=== PATIENT | male | born 1950 | race Caucasian/White ===

== ENCOUNTER 2018-10-24 08:41 | Day surgery (SDC) | payer MEDICARE ==
[2018-10-22 09:34] VITALS: BMI 58.6
[~2018-10-24 08:41] MED LIST: LACTATED RINGERS 1,000 ML IV SCH; LIDOCAINE 1% 20 ML VIAL (10MG/ML) FOR IV START INTRADERMA PRN
[2018-10-24 09:07] VITALS: RESP 16; TEMP 98.3
[2018-10-24 09:13] LABS: Glucose,Whole Blood 115 mg/dL (75-99)
[2018-10-24] MEDS ORDERED: PROPOFOL 10 MG/ML 20 ML VIAL IV ONE (10:05)
[2018-10-24] MEDS ORDERED: MIDAZOLAM 2 MG/2 ML VIAL ONE (10:05)
[2018-10-24] MEDS ORDERED: fentaNYL (PF) 50 MCG/ML 2 ML AMP ONE (10:05)
--- NOTE | 2018-10-24 10:19 | P.GSHP ---
History of Present Illness H&P Date: 10/24/18 Chief Complaint: GI bleed This is a 60-year-old transgender male who presents today for colonoscopy. Patient had issues with GI bleed. Patient states that she may have some hemorrhoids. Past Medical History Past Medical History: Asthma, Cancer, COPD, Diabetes Mellitus, Hypertension, Myocardial Infarction (LA), Osteoarthritis (OA), Thyroid Disorder Additional Past Medical History / Comment(s): CHRONIC BRONCHITIS, LEFT KIDNEY CANCER Last Myocardial Infarction Date:: 2006 History of Any Multi-Drug Resistant Organisms: None Reported Past Surgical History: Heart Catheterization, Hysterectomy, Tonsillectomy, Tubal Ligation Additional Past Surgical History / Comment(s): BILATERAL SALPINGECTOMY AND OOPHERECTOMY , LEFT KIDNEY REMOVED, GENDER CHANGE SURGERY, -BREAST REMOVED , RIGHT ELBOW SURGERY, LEFT KNEE SURGERY Past Anesthesia/Blood Transfusion Reactions: No Reported Reaction Smoking Status: Former smoker - Past Family History Son(s) Family Medical History: Cancer Additional Family Medical History / Comment(s): THROAT CANCER, Brother(s) Family Medical History: Cancer Additional Family Medical History / Comment(s): LUNG CANCER Father Family Medical History: Cancer Additional Family Medical History / Comment(s): LUNG CANCER Sister(s) Family Medical History: Cancer Additional Family Medical History / Comment(s): KIDNEY CANCER, PANCREATIC CANCER Medications and Allergies Home Medications Medication Instructions Recorded Confirmed Type Albuterol Sulfate [Proventil Hfa] 1 - 2 puff INHALATION Q6HR PRN 10/22/18 10/24/18 History Aspirin EC [Ecotrin Low Dose] 81 mg PO DAILY 10/22/18 10/22/18 History Citalopram Hydrobromide [CeleXA] 40 mg PO DAILY 10/22/18 10/24/18 History Enalapril [Vasotec] 20 mg PO BID 10/22/18 10/22/18 History Fluticasone/Salmeterol [Advair 1 inhalation PO BID 10/22/18 10/24/18 History 250-50 Diskus] Hydrochlorothiazide [Hydrodiuril] 12.5 mg PO DAILY 10/22/18 10/24/18 History Levothyroxine Sodium [Synthroid] 88 mcg PO MOTUWETHFRSA 10/22/18 10/22/18 History Metoprolol Tartrate [Lopressor] 50 mg PO BID 10/22/18 10/22/18 History Pantoprazole [Protonix] 40 mg PO DAILY PRN 10/22/18 10/24/18 History Tiotropium [place] [Spiriva] 1 cap INHALATION DAILY 10/22/18 10/24/18 History amLODIPine [Norvasc] 2.5 mg PO DAILY 10/22/18 10/22/18 History metFORMIN HCL [Glucophage] 500 mg PO BID 10/22/18 10/24/18 History Allergies Allergy/AdvReac Type Severity Reaction Status Date / Time cefaclor [From Ceclor] Allergy Rash/Hives, Verified 10/22/18 08:52 SHORTNESS OF BREATH Cephalosporins Allergy Rash/Hives Verified 10/22/18 08:52 etodolac Allergy VISION Verified 10/22/18 08:54 PROBLEMS meloxicam [From Mobic] Allergy Unknown Verified 10/22/18 08:54 Surgical - Exam Vital Signs Temp Pulse Resp BP Pulse Ox 98.3 F 63 16 173/79 96 10/24/18 09:04 10/24/18 09:04 10/24/18 09:04 10/24/18 09:04 10/24/18 09:04 - General well developed, well nourished, no distress - Eyes PERRL - ENT normal pinna - Neck no masses - Respiratory normal expansion - Cardiovascular Rhythm: regular - Abdomen Abdomen: soft, non tender Results - Labs Abnormal Lab Results - Last 24 Hours (Table) 10/24/18 Range/Units 09:09 POC Glucose (mg/dL) 115 H (75-99) mg/dL Assessment and Plan Assessment: GI bleed. We'll perform colonoscopy.
--- NOTE | 2018-10-24 10:45 | P.OP ---
Date of Procedure: 10/24/18 Preoperative Diagnosis: GI bleed Postoperative Diagnosis: Antral gastritis Rectal biopsy pathology pending Hemorrhoids Procedure(s) Performed: EGD Colonoscopy Anesthesia: MAC Surgeon: Oni Terrell Pathology: other (Antrum, rectum) Condition: stable Disposition: PACU Description of Procedure: The patient's placed on the endoscopy table in the lateral position. He received IV sedation. The gastroscope placed oropharynx and passed in the esophagus and into the stomach. Scope was then placed through the pylorus. The first and second portion of the duodenum appeared normal. Scope was then brought back the antrum this. Minimally inflamed a biopsies performed. The scope was then retroflexed and the remainder of the stomach appeared normal. There is no significant hiatal hernia. The GE junction was at 40 cm. The distal esophagus appeared normal. The proximal esophagus appeared normal. The scope was withdrawn for patient. Next digital rectal exam was performed which revealed no abnormalities. Flexible colonoscope was then placed patient anus and passed throughout the entire colon. Ileocecal valve visualized. The cecum, ascending and transverse colon appeared normal. The descending and sigmoid colon appeared normal. The scope was brought back the rectum and there was evidence of inflammation. A rectal biopsy performed. Scope was then withdrawn from the patient.
[2018-10-24 11:09] VITALS: BP 134/79; PULSE 58
[2018-10-24] MEDS ORDERED: IV FLUID CONTINUATION 1,000 ML IV ONE (11:10)
== END 2018-10-24 11:17 | disposition home or self-care (01) ==
LOC: ORWHC2ENDO 08:41
PROVIDERS: ATTEND Surgery
DX: K29.50 Unspecified chronic gastritis without bleeding (principal); K52.9 Noninfective gastroenteritis and colitis, unspecified; E07.9 Disorder of thyroid, unspecified; E11.9 Type 2 diabetes mellitus without complications; I10 Essential (primary) hypertension; I25.2 Old myocardial infarction; J44.9 Chronic obstructive pulmonary disease, unspecified; M19.90 Unspecified osteoarthritis, unspecified site; Z79.82 Long term (current) use of aspirin; Z85.528 Personal history of other malignant neoplasm of kidney; Z87.891 Personal history of nicotine dependence; Z88.1 Allergy status to other antibiotic agents; Z87.890 Personal history of sex reassignment; Z88.4 Allergy status to anesthetic agent; Z88.8 Allergy status to other drugs, medicaments and biological substances; Z79.899 Other long term (current) drug therapy
CPT/HCPCS: 88305; 45380; 43239; J2250; J3010; J2704

== ENCOUNTER → 2019-03-14 | Outpatient (CLI) | payer MEDICARE ==
--- NOTE | 2019-03-14 15:55 | US ---
EXAMINATION TYPE: US mass soft tissue chest/back DATE OF EXAM: 03/14/2019 COMPARISON: NONE CLINICAL HISTORY: R59.1 LYMPHADENOPATHY. Right lateral chest area of pain. TECHNIQUE/FINDINGS: Targeted grayscale ultrasound was performed of the area of concern in the patient 's right lateral chest. Scanned area of pain right lateral chest from armpit down. No solid or cystic mass. No suspicious son ographic finding. No subcutaneous edema. IMPRESSION: No sonographic correlate to the patient's pain.
== END | disposition home or self-care (01) ==
LOC: RADUSWWP 15:24 → EDSEX 15:40
PROVIDERS: ATTEND Surgery
DX: R59.1 Generalized enlarged lymph nodes (principal)

== ENCOUNTER → 2019-12-03 | Outpatient (CLI) | payer OTHER ==
--- NOTE | 2019-12-03 17:10 | CT ---
EXAMINATION TYPE: CT ChestAbdPelvis wo con DATE OF EXAM: 12/03/2019 COMPARISON: 08/14/2013 HISTORY: Malignant carcinoid tumor of kidney, LT kidney removed CT DLP: 1136mGycm Unenhanced CT of the Chest, Abdomen and Pelvis Unenhanced CT of the chest ,abdomen and pelvis is performed. The lack of intravenous contrast limits evaluation of the solid and hollow viscera. Oral contrast: Yes CT Chest: LUNGS: Mild emphysematous changes. The lungs are clear and free of infiltrate or atelectasis. No pul monary nodule or mass is detected. No pleural effusion or CT evidence of interstitial lung disease. MEDIASTINUM: Thoracic aorta is of normal caliber. The heart is not enlarged. No evidence for media stinal mass or adenopathy. HILAR STRUCTURES: No evidence for mass. No hilar adenopathy is appreciated. OTHER: No significant abnormality. CONTRAST CT ABDOMEN AND PELVIS: LIVER/GB: No calcified gallstones. No space occupying hepatic lesion. Biliary tree is of normal ca liber. PANCREAS: No inflammation. No distinct mass. SPLEEN: No splenic enlargement. No lesion seen. ADRENALS: Stable left adrenal nodule. No thickening. KIDNEYS/BLADDER: Left-sided nephrectomy. No evidence for recurrent mass. No hydronephrosis. No neph rolithiasis. No distinct renal mass. BOWEL: Normal appendix. Normal bowel caliber. No inflammation. Moderate fecal stasis. GENITAL ORGANS: No gross abnormality. LYMPH NODES: No greater than 1cm abdominal or pelvic lymph nodes are appreciated. AORTA: No significant abnormality. OSSEOUS STRUCTURES: No significant abnormality is seen. OTHER: No significant additional abnormality is seen. IMPRESSION: 1. Interval left-sided nephrectomy without evidence for recurrent or metastatic disease. No metastati c disease seen. Stable left adrenal nodule.
== END | disposition home or self-care (01) ==
LOC: RADCTMAIN 14:54
DX: C7A.093 Malignant carcinoid tumor of the kidney (principal); E27.8 Other specified disorders of adrenal gland; Z90.5 Acquired absence of kidney; Z88.1 Allergy status to other antibiotic agents; Z88.6 Allergy status to analgesic agent
CPT/HCPCS: 71250; 74176

== ENCOUNTER → 2020-03-23 | Outpatient (CLI) | payer MEDICARE | END | disposition home or self-care (01) | LOC: LABWHC1 14:36 | PROVIDERS: ATTEND Internal Medicine Critical Care Medicine | DX: R05 Cough (principal); R06.02 Shortness of breath | CPT/HCPCS: U0003; C9803 ==

== ENCOUNTER → 2020-03-25 | Outpatient (CLI) | payer OTHER | END | disposition home or self-care (01) | LOC: RADMRIMAIN 12:41 | DX: Z53.9 Procedure and treatment not carried out, unspecified reason (principal) ==

== ENCOUNTER → 2020-04-24 | Outpatient (CLI) | payer OTHER ==
--- NOTE | 2020-04-27 10:14 | MR ---
EXAMINATION TYPE: MR cspine/lspine wo con DATE OF EXAM: 04/24/2020 COMPARISON: CT abdomen and pelvis December 03, 2019. HISTORY: Neck and low back pain for 10 years. TECHNIQUE: Multiplanar, multisequence imaging of the cervical and lumbar spine are performed without IV contrast. FINDINGS: Cervical spine: FINDINGS: Exam is suboptimal as there is significant motion artifact degradation. Sagittal images of the cervical spine show the craniocervical junction to appear within normal limits. The cervical and upper thoracic spinal cord is normal in course, caliber, and signal. Vertebral alignment is satisfa ctory on sagittal images. There is jnea-yn-flmkumwe disc space narrowing with moderate to severe ante rior spurring at C5-C6 and C6-C7 levels. The bone marrow signal intensity is within normal limits. Axial images at C2-C3 level show small broad-based left paracentral disc protrusion mildly effacing t he anterior thecal sac, patent bilateral neural foramina. Axial images at C3-C4 level show uncovertebral facet degenerative changes and broad-based right parac entral/foraminal spur disc complex effacing the anterolateral thecal sac and causing asymmetric moder ate to severe right-sided neural foraminal narrowing, there is mild to moderate left-sided neural for aminal narrowing noted. Axial images at C4-C5 level show uncovertebral facet degenerative changes with tiny central disc prot rusion, there is mild effacement of the anterior thecal sac, patent bilateral neural foramina. Axial images at C5-C6 levels with broad-based posterior disc protrusion effacing the anterior thecal sac up to ventral surface of spinal cord and causing moderate to advanced left greater than right maxwell ateral neural foraminal narrowing. Axial images at C6-C7 levels with broad-based posterior disc protrusion effacing the anterior thecal sac and causing mild left-sided neural foraminal narrowing. Axial images at C7-T1 level are within normal limits. IMPRESSION: Multilevel degenerative changes in the cervical spine greatest at C5-C6 and to a slightly lesser extent at C3-C4 level as detailed above. Lumbar spine: Sagittal images of the lumbar spine show vertebral body heights to remain satisfactory. Slight levoco nvex scoliosis centered at L3 level redemonstrated. Multilevel disc desiccation is present. Redemonst ration moderate disc space narrowing L3-L4 level with heterogeneous bone uptake to endplate changes a nd moderate anterior spurring . Mild disc space narrowing with vacuum disc phenomenon L5-S1 level. Mi ld to moderate disc space narrowing L2-L3 level. Additional mild multilevel disc space narrowing. The conus medullaris is normal in position and signal ending mid L1 level. Additional mild/moderate mult ilevel anterior spurring redemonstrated. Axial images show T12-L1 level to appear within normal limits. Axial images at L1-L2 level show mild to moderate broad disc bulge effacing the anterior thecal sac, patent bilateral neural foramina. Axial images at L2-L3 level shows moderate broad-based disc bulge effacing the anterior thecal sac wi th mild facet degenerative changes bilaterally. There is mild right greater than left bilateral anter ior inferior neural foraminal narrowing. Axial images at L3-L4 level shows moderate facet degenerative changes and ligamentum flavum hypertrop hy effacing posterolateral thecal sac. There is moderate broad disc bulge without significant anterio r spinal canal effacement. There is mild to moderate right greater than left bilateral anterior infer ior neural foraminal narrowing, there is encroachment on the inferior right L3 margin sagittal image 12. Axial images at the L4-L5 level show moderate to advanced facet degenerative changes and ligament fla vum hypertrophy. There is mild to moderate broad-based posterior disc protrusion. There is mild effac ement of the anterior thecal sac. There is wsoe-th-fxeayghz right greater than left bilateral neural foraminal narrowing. Axial images at L5-S1 levels with moderate facet degenerative changes bilaterally. There is mild-to-m oderate broad disc bulge. Spinal canal is preserved. There is mild right-sided anterior inferior neur al foraminal narrowing. Left kidney redemonstrated nonvisualized. Paraspinal muscle bulk is maintained. IMPRESSION: Multilevel degenerative changes in the lumbar spine as detailed above. If outside MRI becomes available for comparison an addendum may be issued.
== END | disposition home or self-care (01) ==
LOC: RADMRIMAIN 14:34
DX: M47.812 Spondylosis without myelopathy or radiculopathy, cervical region (principal); M47.816 Spondylosis without myelopathy or radiculopathy, lumbar region
CPT/HCPCS: 72141; 72148

== ENCOUNTER → 2020-08-31 | Outpatient (CLI) | payer OTHER, MEDICARE ==
--- NOTE | 2020-09-01 09:52 | XR ---
EXAMINATION TYPE: XR cervical spine limited DATE OF EXAM: 08/31/2020 TECHNIQUE: AP lateral and odontoid view of the cervical spine were obtained HISTORY: M99.03, M54.41, M99.01 COMPARISON: None FINDINGS: C7-T1 is well visualized. There is no loss of vertebral body height. Minimal anterolisthesis of C2 on C3, C3 on C4, and minimal retrolisthesis of C4 on C5. Minimal anterolisthesis of C5 on C6. Narrowing of the intervertebral disc spaces is most prominent at C5-6, and C6-7 with prominent anterior osteop hytes. Degenerative changes of the facets. Prevertebral soft tissues are within normal limits. The de ns is intact. Atlantoaxial and atlantooccipital articulations are intact. Visualized lung apices are clear. After financial aid counselor vascular palpitations of the carotid arteries bilaterally. IMPRESSION: 1. Multilevel degenerative changes of the cervical spine. No evidence of acute compression fracture.
--- NOTE | 2020-09-01 10:56 | XR ---
EXAMINATION TYPE: XR lumbar spine 2 or 3V DATE OF EXAM: 08/31/2020 CLINICAL HISTORY: Right lower back pain. History of sciatica degenerative disease TECHNIQUE: Frontal, lateral, and oblique images of the lumbar spine are obtained. COMPARISON: CT abdomen and pelvis 12/03/2019 FINDINGS: There is mild levocurvature of the lumbar spine. 5 nonrib-bearing lumbar-type vertebral bod ies. Bony demineralization. Sacroiliac joints are intact. Visualized portions. Severe atherosclerotic calcification of the abdominal aorta. There is maintenance of the normal lumbar lordosis. Minimal re trolisthesis of and L2 on L3. Narrowing of the intervertebral disc spaces at L2-3, L3-4, L4-5 and L5- S1. Multiple anterior osteophytes. Degenerative changes of the facets. IMPRESSION: 1. Multilevel degenerative changes lumbar spine as described above. 2. Severe atherosclerotic calcification abdominal aorta appears nonaneurysmal.
== END | disposition home or self-care (01) ==
LOC: RADXRMAIN 17:20
PROVIDERS: ATTEND Chiropractor
DX: M51.16 Intervertebral disc disorders with radiculopathy, lumbar region (principal); M43.16 Spondylolisthesis, lumbar region; M47.26 Other spondylosis with radiculopathy, lumbar region; M25.78 Osteophyte, vertebrae; I70.0 Atherosclerosis of aorta; M47.22 Other spondylosis with radiculopathy, cervical region
CPT/HCPCS: 72040; 72100

== ENCOUNTER → 2021-02-23 | Outpatient (CLI) | payer OTHER ==
--- NOTE | 2021-02-23 13:48 | BD ---
EXAMINATION TYPE: Axial Bone Density DATE OF EXAM: 02/23/2021 COMPARISON: DEXA bone scan report 2007 CLINICAL HISTORY: Postmenopausal female Height: 5 FT 3 1/4 IN Weight: 172 FRAX RISK QUESTIONS: Alcohol (3 or more units per day): NO Family History (Parent hip fracture): NO Glucocorticoids (More than 3mos): YES (Ex: prednisone, prednisolone, methylprednisolone, dexamethasone, and hydrocortisone). History of Fracture in Adulthood: NO Secondary Osteoporosis: 1. Type 1 Diabetes: NO 2. Hyperthyroidism: NO 3. Menopause before 45: YES 4. Malnutrition: NO 5. Chronic liver disease: NO Rheumatoid Arthritis: NO Current Tobacco Use: NO RISK FACTORS HISTORY OF: Surgery to Spine/Hip(right/left)/Wrist (right/left): NO Family History of Osteoporosis: YES Active: YES Diet low in dairy products/other sources of calcium: NO Postmenopausal woman: YES Take estrogen and/or progesterone medications: TOOK TESTOSTERONE FOR EIGHT YEARS [age] Lost more than 2 inches in height since high school: NO Frequent falls: NO Poor Health: GOOD Hyperparathyroidism: NO Adrenal Insufficiency: NO MEDICATIONS: Thyroid Medications: YES Which medication: LEVOTHYROXINE How Long: APPROX 15 YEARS Additional Medications: LEVOTHYROXINE, INHALERS, WIXEA, ALBUTEROL,BABY ASPIRIN, HYDROCHLOROTHIAZIDE, AMLODIPINE, METOPROLOL, SIMVASTATIN, CITALOPRAM, GLIPIZIDE, PANTOPRAZOLE, ALPRAZOLAM, CYCLOBENZAPRINE Additional History: COPD, EXAM MEASUREMENTS: Bone mineral densitometry was performed using the [employer]. Bone mineral density as measured about the Lumbar spine is: ----- L1-L4(G/cm2): 1.280 T Score Values are as follows: ----- L2: 0.5 ----- L3: 1.1 ----- L4: 2.3 ----- L1-L4: 0.8 Bone mineral density has: INCREASED 6.8% since study of: 2007 Bone mineral density about the R hip (g/cm2): 0.931 Bone mineral density about the L hip (g/cm2): 0.956 T Score values are as follows: -----R Neck: -0.8 -----L Neck: -0.6 -----R Total: -0.4 -----L Total: -0.5 Bone mineral density has: DECREASED -5.6% since study of: 2007 IMPRESSION: Normal (Values between +1 and -1 indicate normal bone mass). Consider repeating this study in 5 year s or sooner if there is some new clinical indication. NOTE: T-SCORE=SD OF THE YOUNG ADULT MEAN.
== END | disposition home or self-care (01) ==
LOC: RADBDWWP 12:21
PROVIDERS: ATTEND Family Medicine
DX: Z78.0 Asymptomatic menopausal state (principal); Z79.84 Long term (current) use of oral hypoglycemic drugs; Z79.899 Other long term (current) drug therapy
CPT/HCPCS: 77080

== ENCOUNTER → 2021-04-02 | Outpatient (CLI) | payer MEDICARE | END | disposition home or self-care (01) | LOC: LABWHC1 10:58 | PROVIDERS: ATTEND Family Medicine | DX: J44.1 Chronic obstructive pulmonary disease with (acute) exacerbation (principal) | CPT/HCPCS: U0003; C9803 ==

== ENCOUNTER → 2021-06-30 | Outpatient (CLI) | payer OTHER ==
--- NOTE | 2021-06-30 09:02 | CT ---
EXAMINATION TYPE: CT ChestAbdPelvis wo con DATE OF EXAM: 06/30/2021 COMPARISON: CT dated 12/03/2019 HISTORY: Malignant neoplasm of Lt kidney CT DLP: 1235 mGycm. Automated Exposure Control for Dose Reduction was Utilized. TECHNIQUE: CT scan of the thorax, abdomen and pelvis is performed without IV contrast. FINDINGS: LUNGS: Background of moderate to severe COPD changes. Newly seen 6 mm nodule at the posterolateral as pect of the left lower lobe (image #35, series 4) with a newly seen 4 mm elongated nodule at the medi al aspect of the middle lobe (image #40, series 4). No other definite lung nodule identified. Patent trachea and main bronchi. No pleural effusion. MEDIASTINUM: No pathologically enlarged lymph nodes in the chest. No gross cardiomegaly. Coronary and arterial atherosclerotic calcifications. No pericardial effusion. OTHER: Degenerative changes of the thoracic spine. No aggressive bone lesion. LIVER/GB: Stable suspected hemangioma in the right hepatic lobe adjacent to the gallbladder fossa pablo suring 19 mm with stable 5 mm hypodensity at the anterior aspect of the left lower lobe, possibly rep resenting a hepatic cyst. No other definite hepatic focal lesion by this nonenhanced CT scan. Unremar kable gallbladder. PANCREAS: No significant abnormality is seen. SPLEEN: No significant abnormality is seen. ADRENALS: Stable left adrenal nodule measuring 18 mm likely representing an adrenal adenoma. Multiple right renal. KIDNEYS: Unremarkable left nephrectomy bed. Right renal hypodensities, likely representing renal cyst s, suboptimally assessed by this nonenhanced CT scan. Unremarkable right kidney otherwise. BOWEL: Unremarkable nondistended stomach, duodenum and small bowel. Fecal loading of the colon sugges tive of constipation. GENITAL ORGANS: Suspected perineal prolapse, please correlate clinically. Previous hysterectomy. No g ross adnexal mass. The urinary bladder is not distended. LYMPH NODES: No greater than 1cm abdominal or pelvic lymph nodes are appreciated. OSSEOUS STRUCTURES: Degenerative changes of the lumbar spine most evident at L5-S1 level with marked degenerative changes of the right hip joint. No aggressive bone lesion. OTHER: Scattered arterial atherosclerotic calcifications. No sizable ascites. IMPRESSION: 1. Newly seen 2 lung nodules as detailed above, possibly inflammatory/infectious nodules however meta static nodules can't be excluded. Recommend follow-up CT scan in 2-3 months for reassessment. 2. No evidence of local tumor recurrence or metastatic disease seen in the abdomen or the pelvis. Inc idental findings as described above.
== END | disposition home or self-care (01) ==
LOC: RADCTMAIN 07:52
DX: C64.2 Malignant neoplasm of left kidney, except renal pelvis (principal); R91.8 Other nonspecific abnormal finding of lung field
CPT/HCPCS: 71250; 74176

== ENCOUNTER → 2022-05-05 | Outpatient (CLI) | payer OTHER ==
--- NOTE | 2022-05-05 12:58 | CT ---
EXAMINATION TYPE: CT chest wo con DATE OF EXAM: 05/05/2022 COMPARISON: 06/30/2021 HISTORY: nodules CT DLP: 302.[address] of the chest was performed with lung and mediastinal window settings submitted. The la ck of contrast limits evaluation of the vascular, mediastinal and parenchymal structures including th e upper abdomen. LUNGS: Moderate COPD changes redemonstrated. 3.3 mm pulmonary nodule right upper lobe opacity major f issure image 27 of 73. This is unchanged. 2 or 3 new pleural-based nodules right upper lobe laterally measuring 3 mm image 38 and 4 mm image 40. Couple of subpleural adjacent nodules noted measuring up to 3 mm. 4 mm left lower lobe pulmonary nodule image 37 is stable. No evidence for infiltrate or volu me loss. No pleural effusion seen. MEDIASTINUM/DOMINIQUE: Thoracic aorta is of normal caliber with limited evaluation given lack of contrast . The heart is not enlarged. No evidence for mediastinal mass. No lymph nodes greater than 1cm. UPPER ABDOMEN: No significant abnormality is seen. OTHER: No significant other abnormality. IMPRESSION: 1. Scattered sub-5 mm pulmonary nodules are redemonstrated a couple of which are new. Follow-up stud y in one year is advised.
== END | disposition home or self-care (01) ==
LOC: RADCTMAIN 12:18
DX: R91.8 Other nonspecific abnormal finding of lung field (principal); J44.9 Chronic obstructive pulmonary disease, unspecified
CPT/HCPCS: 71250

== ENCOUNTER 2022-06-22 23:49 | Emergency (ER) | payer MEDICARE, OTHER ==
--- NOTE | 2022-06-22 23:56 | ED ---
Chest Pain HPI - General Source: patient, family, RN notes reviewed Mode of arrival: wheelchair Limitations: no limitations - History of Present Illness MD Complaint: chest pain, other (Shortness of breath, fatigue) Anginal Symptoms: nausea <Eugenie Inman - Last Filed: 06/22/22 23:56> <Samuel Del Rosario - Last Filed: 06/23/22 03:16> - General Chief Complaint: Chest Pain Stated Complaint: Chest Pain, Shortness of Breath, Numbness in left Time Seen by Provider: 06/22/22 23:52 - History of Present Illness Initial Comments: This is a 71-year-old female who presents to the emergency department for fatigue, shortness of breath, and chest pain. States that she has felt fatigued for most of the day, and around 8:30 PM this evening developed shortness of breath. She has minor chest pain, but states that the shortness of breath is much more severe. Also reports pain to the back of her head and numbness to the left arm. Additionally, states that she feels sick to her stomach. States that even just sitting in the wheelchair she feels short of breath. (Eugenie Inman) - Related Data Home Medications Medication Instructions Recorded Confirmed Albuterol Sulfate [Proventil Hfa] 1 - 2 puff INHALATION Q6HR PRN 10/22/18 10/24/18 Aspirin EC [Ecotrin Low Dose] 81 mg PO DAILY 10/22/18 10/22/18 Citalopram Hydrobromide [CeleXA] 40 mg PO DAILY 10/22/18 10/24/18 Enalapril [Vasotec] 20 mg PO BID 10/22/18 10/22/18 Fluticasone Propion/Salmeterol 1 inhalation PO BID 10/22/18 10/24/18 [Advair 250-50 Diskus] Levothyroxine Sodium [Synthroid] 88 mcg PO MOTUWETHFRSA 10/22/18 10/22/18 Metoprolol Tartrate [Lopressor] 50 mg PO BID 10/22/18 10/22/18 Pantoprazole [Protonix] 40 mg PO DAILY PRN 10/22/18 10/24/18 Tiotropium [place] [Spiriva] 1 cap INHALATION DAILY 10/22/18 10/24/18 amLODIPine [Norvasc] 2.5 mg PO DAILY 10/22/18 10/22/18 hydroCHLOROthiazide [Hydrodiuril] 12.5 mg PO DAILY 10/22/18 10/24/18 metFORMIN HCL [Glucophage] 500 mg PO BID 10/22/18 10/24/18 Allergies Allergy/AdvReac Type Severity Reaction Status Date / Time cefaclor [From Ceclor] Allergy Rash/Hives, Verified 06/22/22 23:56 SHORTNESS OF BREATH Cephalosporins Allergy Rash/Hives Verified 06/22/22 23:56 etodolac Allergy VISION Verified 06/22/22 23:56 PROBLEMS meloxicam [From Mobic] Allergy Unknown Verified 06/22/22 23:56 ibuprofen AdvReac Unknown Verified 06/23/22 01:02 Review of Systems ROS Other: All systems not noted in ROS Statement are negative. <Eugenie Inman - Last Filed: 06/22/22 23:56> ROS Other: All systems not noted in ROS Statement are negative. <Samuel Del Rosario - Last Filed: 06/23/22 03:16> ROS Statement: Those systems with pertinent positive or pertinent negative responses have been documented in the HPI. Past Medical History Past Medical History: Asthma, Cancer, COPD, Diabetes Mellitus, Hypertension, Myocardial Infarction (HI), Osteoarthritis (OA), Thyroid Disorder Additional Past Medical History / Comment(s): CHRONIC BRONCHITIS, LEFT KIDNEY CANCER Last Myocardial Infarction Date:: 2006 History of Any Multi-Drug Resistant Organisms: None Reported Past Surgical History: Heart Catheterization, Hysterectomy, Tonsillectomy, Tubal Ligation Additional Past Surgical History / Comment(s): BILATERAL SALPINGECTOMY AND OOPHERECTOMY , LEFT KIDNEY REMOVED, GENDER CHANGE SURGERY, -BREAST REMOVED , RIGHT ELBOW SURGERY, LEFT KNEE SURGERY Past Anesthesia/Blood Transfusion Reactions: No Reported Reaction Past Psychological History: Anxiety, Depression Past Alcohol Use History: None Reported Additional Past Alcohol Use History / Comment(s): STARTED SMOKING AT AGE 14 , QUIT FEB 19 1996 SMOKED 1- 1 1/2 PPD Past Drug Use History: None Reported - Past Family History Son(s) Family Medical History: Cancer Additional Family Medical History / Comment(s): THROAT CANCER, Brother(s) Family Medical History: Cancer Additional Family Medical History / Comment(s): LUNG CANCER Father Family Medical History: Cancer Additional Family Medical History / Comment(s): LUNG CANCER Sister(s) Family Medical History: Cancer Additional Family Medical History / Comment(s): KIDNEY CANCER, PANCREATIC CANCER <Eugenie Inman - Last Filed: 06/22/22 23:56> General Exam Limitations: no limitations <Eugenie Inman - Last Filed: 06/22/22 23:56> - General Exam Comments Initial Comments: Visual Physical Exam Vital signs reviewed General: Well-appearing, nontoxic, no acute distress. Head: Normocephalic, atraumatic Eyes: PERRLA, EOMI ENT: Airway patent Chest: Nonlabored breathing Skin: No visual rash, normal skin tone Neuro: Alert and oriented 3 Musculoskeletal: No gross abnormalities (Eugenie Inman) Course Vital Signs 06/22/22 06/23/22 06/23/22 23:52 02:00 02:44 Temperature 98.4 F Pulse Rate 70 62 59 L Respiratory 20 20 20 Rate Blood Pressure 184/81 185/84 168/94 O2 Sat by Pulse 97 94 L Oximetry Chest Pain MDM <Samuel Del Rosario - Last Filed: 06/23/22 03:16> - MDM Dictation was produced using [employer] dictation software. please excuse any grammatical, word or spelling errors. Chief Complaint: 71-year-old female with past medical history of asthma, COPD diabetes presents to the emergency department for shortness of breath, left upper extremity tingling and mild headache History of Present Illness: 71-year-old female presents emergency department for the chief complaint of shortness of breath. She also has secondary complaints of headache and left upper extremity tingling. States that her symptoms initially began with shortness of breath. Denies any cough or chest pain. She has history of cardiac disease. Denies any fevers. Denies any history of heart failure. Patient also complaining of left upper extremity tingling. Denies any weakness to the extremity. She states it feels like it's tingling from her left shoulder all down to her fingertips. Shortly after patient also began having a mild headache. She states that in posterior head. Rate is down to the neck. Patient's headache is insidious in onset. Not thunderclap in nature. Denies that this headache is worse addictions ever had in her life. The ROS documented in this emergency department record has been reviewed and confirmed by me. Those systems with pertinent positive or negative responses have been documented in the HPI. All other systems are other negative and/or noncontributory. PHYSICAL EXAM: General Impression: Alert and oriented x3, not in acute distress HEENT: Normocephalic atraumatic, extra-ocular movements intact, pupils equal and reactive to light bilaterally, mucous membranes moist, neck supple Cardiovascular: Heart regular rate and rhythm Chest: Able to complete full sentences, no retractions, no tachypnea Abdomen: abdomen soft, non-tender, non-distended, no organomegaly Musculoskeletal: Pulses present and equal in all extremities, no peripheral edema Motor: no focal deficits noted Neurological: CN II-XII grossly intact, no focal motor or sensory deficits noted, negative Brudzinski's, negative Lhermitte's, negative Kernig's Skin: Intact with no visualized rashes Psych: Normal affect and mood ED course: 71-year-old female presents emergency department with shortness of breath, left upper extremity tingly and headache. Vital signs upon arrival are within acceptable limits. Nursing notes and chart review was performed EKG interpreted by me: Ventricular rate 65, sinus rhythm,. We'll 239, QRS 145, QTc 450. No CT prolongation, no QTC prolongation. No old EKG for comparison. There is depressions in V2 and V5 and V6. Overall this EKG is nonspecific. Was pt. sent in by a medical professional or institution (, PA, SORTER OPERATOR, urgent care, hospital, or group home...) When possible be specific @ -No Did you speak to anyone other than the patient for history (EMS, parent, family, police, friend...)? What history was obtained from this source @ -Family members at the bedside Did you review nursing and triage notes (agree or disagree)? Why? @ -I reviewed and agree with nursing and triage notes Were old charts reviewed (outside hosp., previous admission, EMS record, old EKG, old radiological studies, urgent care reports/EKG's, group home records)? Report findings @ -No old charts were reviewed Differential Diagnosis (chest pain, altered mental status, abdominal pain women, abdominal pain men, vaginal bleeding, musculoskeletal, weakness, fever, dyspnea, syncope, headache, dizziness, GI bleed, back pain, seizure, CVA, palpatations, mental health)? @ -Differential Dyspnea: Coronary syndrome, arrhythmia, tamponade, asthma, COPD, pulmonary embolism, pneumonia, pneumothorax, pulmonary effusion, anaphylaxis, diabetic ketoacidosis, flailed chest, pulmonary contusion, diaphragmatic rupture, anemia, neuromuscular, this is not meant to be an all-inclusive list. EKG interpreted by me (3pts min.). @ -See above X-rays interpreted by me (1pt min.). @ -Nonacute CT interpreted by me (1pt min.). @ -None done U/S interpreted by me (1pt. min.). @ -None done What testing was considered but not performed or refused? (CT, X-rays, U/S, labs)? Why? @ -See above What meds were considered but not given or refused? Why? @ -See above Did you discuss the management of the patient with other professionals (professionals i.e. , PA, SORTER OPERATOR, lab, RT, psych nurse, social media project manager, guidance secretary, teacher, parachute/combatant diver officer, binder caser)? Give summary @ -no Was smoking cessation discussed for >3mins.? @ -No Was critical care preformed (if so, how long)? @ -No Were there social determinants of health that impacted care today? How? (Homelessness, low income, unemployed, alcoholism, drug addiction, transportation, low edu. Level, literacy, decrease access to med. care, residential, rehab)? @ -No Was there de-escalation of care discussed even if they declined (Discuss DNR or withdrawal of care, Hospice)? DNR status @ -No What co-morbidities impacted this encounter? (DM, HTN, Smoking, COPD, CAD, Cancer, CVA, ARF, Chemo, Hep., AIDS, mental health diagnosis, sleep apnea, morbid obesity)? @ -None Was patient admitted / discharged? Hospital course, mention meds given and route, prescriptions, significant lab abnormalities, going to OR and other pertinent info. @ -71-year-old female presents with multiple complaints including shortness of breath, headache and left upper extremity tingling. Clinical presentation con cerning for complex migraine. She does not have any high-risk features of headache. Patient does report shortness of breath however she does not appear to be dyspneic at the bedside. Laboratory evaluation obtained. CBC, coag panel, metabolic panel is unremarkable. Prematurity peptide is negative. For panel by PCR is negative. Chest x-ray is nonacute. Patient wheezing at the bedside. Computed tomography scan of the brain is unremarkable. Disposition options were discussed with patient and she is agreeable for discharge. She is reevaluated bedside at 3:15 AM reports complete resolution of her symptoms. She is concerned that perhaps maybe she became a little anxious about her symptoms. Otherwise she is encouraged to follow up with her primary care doctor. Undiagnosed new problem with uncertain prognosis? @ -No Drug Therapy requiring intensive monitoring for toxicity (Heparin, Nitro, Insulin, Cardizem)? @ -No Were any procedures done? @ -No Diagnosis/symptom? Acute, or Chronic, or Acute on Chronic? Uncomplicated (without systemic symptoms) or Complicated (systemic symptoms)? @ -1. Shortness of breath, no obvious source, no high-risk features Side effects of treatment? @ -No Exacerbation, Progression, or Severe Exacerbation? @ -No Poses a threat to life or bodily function? How? (Chest pain, [place], HI, pneumonia, PE, COPD, DKA, ARF, appy, cholecystitis, CVA, Diverticulitis, Homicidal, Suicidal, threat to staff... and all critical care pts) @ -No (Samuel Del Rosario) Disposition <Eugenie Inman - Last Filed: 06/22/22 23:56> Is patient prescribed a controlled substance at d/c from ED?: No Time of Disposition: 03:16 <Samuel Del Rosario - Last Filed: 06/23/22 03:16> Clinical Impression: Dyspnea Disposition: HOME SELF-CARE Condition: Good Instructions (If sedation given, give patient instructions): Dyspnea (ED) Referrals: [facility],Clinic [REFERRING] - 1-2 days
[2022-06-23 00:47] LABS: Basophils # (A) 0.1 k/uL (0-0.2); Basophils % (A) 1 %; Eosinophils # (A) 0.2 k/uL (0-0.7); Eosinophils % (A) 1 %; HCT 44.8 % (34.0-46.0); HGB 15.2 gm/dL (11.4-16.0); Lymphocytes # (A) 1.5 k/uL (1.0-4.8); Lymphocytes % (A) 11 %; MCH 29.4 pg (25.0-35.0); MCV 86.5 fL (80.0-100.0); Mean Platelet Volume 7.7; Monocytes # (A) 1.1 k/uL (0-1.0); Monocytes % (A) 8 %; Neutrophils # (A) 10.3 k/uL (1.3-7.7); Neutrophils % (A) 77 %; Platelet Count 282 k/uL (150-450); RBC 5.18 m/uL (3.80-5.40); RDW 13.5 % (11.5-15.5); WBC 13.3 k/uL (3.8-10.6)
[2022-06-23] MEDS ORDERED: ACETAMINOPHEN TAB 500 MG TAB PO STA (00:49)
[2022-06-23] MEDS ORDERED: ONDANSETRON 4 MG/2 ML VIAL IVP STA (00:52)
[2022-06-23 01:10] LABS: INR 0.9 (<1.2); Prothrombin Time 9.9 sec (9.0-12.0)
--- NOTE | 2022-06-23 01:24 | CT ---
EXAMINATION TYPE: CT brain wo con DATE OF EXAM: 06/23/2022 COMPARISON: None HISTORY: headache, LUE tingling CT DLP: 1110 mGycm Automated exposure control for dose reduction was used. Images of the brain obtained with no contrast. Ventricles have normal size. There is no mass effect or midline shift. No sign of intracranial hemorr shannon. Calvarium is intact. Skull base is intact. There is normal aeration of the mastoid sinuses. IMPRESSION: Negative unenhanced head CT scan.
--- NOTE | 2022-06-23 01:25 | XR ---
EXAMINATION TYPE: XR chest 2V DATE OF EXAM: 06/23/2022 COMPARISON: NONE HISTORY: Headache. TECHNIQUE: 2 views FINDINGS: Heart and mediastinum are normal. Lungs are clear. Diaphragm is normal. Bony thorax is inta ct. There is mild pulmonary hyperinflation. Thoracic aorta shows minimal atheromatous changes. Thorac ic spine is intact. There are chest leads. IMPRESSION: There is probably COPD. No acute lung disease. Normal heart
[2022-06-23 01:40] LABS: Albumin 4.1 g/dL (3.5-5.0); Calcium 9.1 mg/dL (8.4-10.2); Total Bilirubin 0.6 mg/dL (0.2-1.3); Total Protein 6.8 g/dL (6.3-8.2)
[2022-06-23 01:52] LABS: Partial Thromboplastin Time 21.9 sec (22.0-30.0)
[2022-06-23 02:05] LABS: Magnesium 2.2 mg/dL (1.6-2.3); Potassium 3.7 mmol/L (3.5-5.1)
[2022-06-23] MEDS ORDERED: SODIUM CHLORIDE 0.9% 1,000 ML IV STA (02:16)
[2022-06-23 03:17] VITALS: BP 160/78; PULSE 61; RESP 16; TEMP 98.6
== END 2022-06-23 03:18 | disposition home or self-care (01) ==
LOC: EC 23:49
DX: R06.00 Dyspnea, unspecified (principal); I10 Essential (primary) hypertension; I25.2 Old myocardial infarction; J44.9 Chronic obstructive pulmonary disease, unspecified; M19.90 Unspecified osteoarthritis, unspecified site; F41.9 Anxiety disorder, unspecified; F32.A Depression, unspecified; E11.9 Type 2 diabetes mellitus without complications; Z79.51 Long term (current) use of inhaled steroids; Z79.82 Long term (current) use of aspirin; Z79.84 Long term (current) use of oral hypoglycemic drugs; Z79.899 Other long term (current) drug therapy; Z87.891 Personal history of nicotine dependence; Z88.1 Allergy status to other antibiotic agents; Z88.8 Allergy status to other drugs, medicaments and biological substances
CPT/HCPCS: 36415; 93005; 83880; 80053; 83735; 84484; 85025; 85610; 85730; 87636; 71046; 70450; 99285; 96374; 96361; J2405

== ENCOUNTER → 2022-07-05 | Outpatient (CLI) | payer MEDICARE, OTHER ==
--- NOTE | 2022-07-06 07:24 | US ---
EXAMINATION TYPE: US abdomen limited DATE OF EXAM: 07/05/2022 COMPARISON: NONE CLINICAL HISTORY: R10.9. Pain right flank for two month after breathing treatment. TECHNIQUE: Scanning was performed over area of pain, right flank, as pointed out by patient. Superfi cial scanning and deeper scanning was performed. The area is over the right kidney, there are multipl e small cysts seen. Valsalva was utilized, no obvious hernia seen. There is no fluid collection or m ass identified. FINDINGS: There is a 1.6 x 1.3 cm cyst on the upper pole right kidney within the [id number]. IMPRESSION: 1. Right renal cyst 2. No suspicious abnormalities to account for right flank pain
== END | disposition home or self-care (01) ==
LOC: RADUSWWP 15:52
PROVIDERS: ATTEND Family Medicine
DX: N28.1 Cyst of kidney, acquired (principal)
CPT/HCPCS: 76705

== ENCOUNTER → 2022-07-20 | Outpatient (CLI) | payer MEDICARE ==
--- NOTE | 2022-07-20 15:56 | CT ---
EXAMINATION TYPE: CT abdomen pelvis wo con CT DLP: 526.8 mGycm, Automated exposure control for dose reduction was used. DATE OF EXAM: 07/20/2022 2:03 PM COMPARISON: CT abdomen pelvis most recent from 06/30/2021 CLINICAL INDICATION:Female, 71 years old with history of R10.9; abdominal discomfort TECHNIQUE: Axial CT of the abdomen and pelvis. Sagittal and coronal reformats were created on a [employer] workstation. Contrast used: None Oral contrast used: with Oral Contrast FINDINGS: LOWER CHEST: Mild to moderate centrilobular emphysema changes throughout the lungs. ABDOMEN LIVER: Hepatic hemangioma measuring up to 18 mm has increased in size slightly since 2013. GALLBLADDER AND BILE DUCTS: Unremarkable. PANCREAS: Unremarkable. SPLEEN: Unremarkable. ADRENAL GLANDS: Unremarkable. KIDNEYS AND URETERS: No evidence of hydronephrosis or renal calculus. The ureters are unremarkable. PELVIS BLADDER: Unremarkable REPRODUCTIVE: Unremarkable. ABDOMEN & PELVIS STOMACH AND BOWEL: No evidence of bowel obstruction. Large stool burden throughout the colon. PERITONEUM/RETROPERITONEUM: No evidence of pneumoperitoneum or free fluid. VASCULATURE: Mild atherosclerotic calcifications are present throughout the abdominal aorta and its b ranches. No evidence of aortic aneurysm. MUSCULOSKELETAL: No acute osseous abnormalities. Moderate disc degeneration changes are present throu ghout the thoracolumbar spine. Multilevel facet joint arthropathy changes throughout the spine. End-s tage osteoporosis changes of the right hip with [id number] articulation and subchondral cystic betancourt ge and osteophyte formation. LYMPH NODES: No gross evidence for lymphadenopathy. SOFT TISSUE/ABDOMINAL WALL: Unremarkable IMPRESSION: 1. Large stool burden throughout the colon correlate for constipation. No additional acute process w ithin the abdomen or pelvis. 2. 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
== END | disposition home or self-care (01) ==
LOC: RADCTMAIN 11:59
PROVIDERS: ATTEND Family Medicine
DX: R10.9 Unspecified abdominal pain (principal); M16.11 Unilateral primary osteoarthritis, right hip
CPT/HCPCS: 74176

== ENCOUNTER 2023-04-09 14:17 | Emergency (ER) | payer OTHER, MEDICARE ==
[2023-04-09 14:23] VITALS: TEMP 98.7
--- NOTE | 2023-04-09 14:49 | ED ---
General Adult HPI - General Chief complaint: Shortness of Breath Stated complaint: Cough, shortness of breath Time Seen by Provider: 04/09/23 14:28 Source: patient, RN notes reviewed Mode of arrival: ambulatory Limitations: no limitations - History of Present Illness Initial comments: 72-year-old female presents emergency department for evaluation of cough, congestion, headache, muscle aches 3 days. She states that headaches and fatigue started 3 days ago but noticed today that she started coughing. She denies sore throat, fever, chills. She states that other people in her household has similar symptoms. She has a history of COPD and states she has felt more short of breath today than typically. She does report that she is using her breathing treatments at home. - Related Data Home Medications Medication Instructions Recorded Confirmed Albuterol Sulfate [Proventil Hfa] 1 - 2 puff INHALATION Q6HR PRN 10/22/18 10/24/18 Aspirin EC [Ecotrin Low Dose] 81 mg PO DAILY 10/22/18 10/22/18 Citalopram Hydrobromide [CeleXA] 40 mg PO DAILY 10/22/18 10/24/18 Enalapril [Vasotec] 20 mg PO BID 10/22/18 10/22/18 Fluticasone Propion/Salmeterol 1 inhalation PO BID 10/22/18 10/24/18 [Advair 250-50 Diskus] Levothyroxine Sodium [Synthroid] 88 mcg PO MOTUWETHFRSA 10/22/18 10/22/18 Metoprolol Tartrate [Lopressor] 50 mg PO BID 10/22/18 10/22/18 Pantoprazole [Protonix] 40 mg PO DAILY PRN 10/22/18 10/24/18 Tiotropium [place] [Spiriva] 1 cap INHALATION DAILY 10/22/18 10/24/18 amLODIPine [Norvasc] 2.5 mg PO DAILY 10/22/18 10/22/18 hydroCHLOROthiazide [Hydrodiuril] 12.5 mg PO DAILY 10/22/18 10/24/18 metFORMIN HCL [Glucophage] 500 mg PO BID 10/22/18 10/24/18 Previous Rx's Medication Instructions Recorded predniSONE 50 mg PO DAILY #5 tab 04/09/23 Allergies Allergy/AdvReac Type Severity Reaction Status Date / Time cefaclor [From Ceclor] Allergy Rash/Hives, Verified 06/22/22 23:56 SHORTNESS OF BREATH Cephalosporins Allergy Rash/Hives Verified 06/22/22 23:56 etodolac Allergy VISION Verified 06/22/22 23:56 PROBLEMS meloxicam [From Mobic] Allergy Unknown Verified 06/22/22 23:56 ibuprofen AdvReac Unknown Verified 06/23/22 01:02 Review of Systems ROS Statement: Those systems with pertinent positive or pertinent negative responses have been documented in the HPI. ROS Other: All systems not noted in ROS Statement are negative. Past Medical History Past Medical History: Asthma, Cancer, COPD, Diabetes Mellitus, Hypertension, Myocardial Infarction (OK), Osteoarthritis (OA), Thyroid Disorder Additional Past Medical History / Comment(s): CHRONIC BRONCHITIS, LEFT KIDNEY CANCER Last Myocardial Infarction Date:: 2006 History of Any Multi-Drug Resistant Organisms: None Reported Past Surgical History: Heart Catheterization, Hysterectomy, Tonsillectomy, Tubal Ligation Additional Past Surgical History / Comment(s): BILATERAL SALPINGECTOMY AND OOPHERECTOMY , LEFT KIDNEY REMOVED, GENDER CHANGE SURGERY, -BREAST REMOVED , RIGHT ELBOW SURGERY, LEFT KNEE SURGERY Past Anesthesia/Blood Transfusion Reactions: No Reported Reaction Past Psychological History: Anxiety, Depression Past Alcohol Use History: None Reported Past Drug Use History: None Reported - Past Family History Son(s) Family Medical History: Cancer Additional Family Medical History / Comment(s): THROAT CANCER, Brother(s) Family Medical History: Cancer Additional Family Medical History / Comment(s): LUNG CANCER Father Family Medical History: Cancer Additional Family Medical History / Comment(s): LUNG CANCER Sister(s) Family Medical History: Cancer Additional Family Medical History / Comment(s): KIDNEY CANCER, PANCREATIC CANCER General Exam Limitations: no limitations General appearance: alert, in no apparent distress Head exam: Present: atraumatic, normocephalic, normal inspection Eye exam: Present: normal appearance, PERRL, EOMI. Absent: scleral icterus, conjunctival injection, periorbital swelling ENT exam: Present: normal exam, mucous membranes moist Neck exam: Present: normal inspection. Absent: tenderness, meningismus, lymphadenopathy Respiratory exam: Present: wheezes (Mild throughout). Absent: respiratory distress, rales, rhonchi, stridor, chest wall tenderness, accessory muscle use Cardiovascular Exam: Present: regular rate, normal rhythm, normal heart sounds. Absent: systolic murmur, diastolic murmur, rubs, gallop, clicks Extremities exam: Present: normal inspection, full ROM, normal capillary refill. Absent: tenderness, pedal edema, joint swelling, calf tenderness Back exam: Present: normal inspection Neurological exam: Present: alert, oriented X3 Psychiatric exam: Present: normal affect, normal mood Course Vital Signs 04/09/23 04/09/23 14:19 17:04 Temperature 98.7 F Pulse Rate 73 64 Respiratory 24 20 Rate Blood Pressure 132/75 155/73 O2 Sat by Pulse 97 96 Oximetry Medical Decision Making - Medical Decision Making Was pt. sent in by a medical professional or institution (, PA, TOOL CRIB LEAD, urgent care, hospital, or half-way...) When possible be specific @ -No Did you speak to anyone other than the patient for history (EMS, parent, family, police, friend...)? What history was obtained from this source @ -No Did you review nursing and triage notes (agree or disagree)? Why? @ -I disagree with the triage note, patient is not in any respiratory distress Were old charts reviewed (outside hosp., previous admission, EMS record, old EKG, old radiological studies, urgent care reports/EKG's, half-way records)? Report findings @ -No old charts were reviewed Differential Diagnosis (chest pain, altered mental status, abdominal pain women, abdominal pain men, vaginal bleeding, weakness, fever, dyspnea, syncope, headache, dizziness, GI bleed, back pain, seizure, CVA, palpatations, mental health, musculoskeletal)? @ -Differential Dyspnea: Coronary syndrome, arrhythmia, tamponade, asthma, COPD, pulmonary embolism, pneumonia, pneumothorax, pulmonary effusion, anaphylaxis, diabetic ketoacidosis, flailed chest, pulmonary contusion, diaphragmatic rupture, anemia, neuromuscular, this is not meant to be an all-inclusive list. EKG interpreted by me (3pts min.). @ -EKG at 1510 shows sinus rhythm first-degree AV block rate 65, UT 272, QRS 144, QTQTc 4814 23 X-rays interpreted by me (1pt min.). @ -X-ray shows no acute infiltrate, COPD changes CT interpreted by me (1pt min.). @ -None done U/S interpreted by me (1pt. min.). @ -None done What testing was considered but not performed or refused? (CT, X-rays, U/S, labs)? Why? @ -None What meds were considered but not given or refused? Why? @ -None Did you discuss the management of the patient with other professionals (professionals i.e. , PA, TOOL CRIB LEAD, lab, RT, psych nurse, social security benefits interviewer, farmer vegetable, teacher, housing management officer, manager case management)? Give summary @ -No Was smoking cessation discussed for >3mins.? @ -No Was critical care preformed (if so, how long)? @ -No Were there social determinants of health that impacted care today? How? (Homelessness, low income, unemployed, alcoholism, drug addiction, transportation, low edu. Level, literacy, decrease access to med. care, custodial, rehab)? @ -No Was there de-escalation of care discussed even if they declined (Discuss DNR or withdrawal of care, Hospice)? DNR status @ -No What co-morbidities impacted this encounter? (DM, HTN, Smoking, COPD, CAD, Cancer, CVA, ARF, Chemo, Hep., AIDS, mental health diagnosis, sleep apnea, morbid obesity)? @ -None Was patient admitted / discharged? Hospital course, mention meds given and route, prescriptions, significant lab abnormalities, going to OR and other pertinent info. @ -Discharged. Patient presented to the emergency department for evaluation of cough, congestion, worsening shortness of breath. Laboratory studies obtained. CBC shows a PVC 7.9, hemoglobin 14.2; UA shows some studies within normal limits I, CMP shows sodium 136, potassium 3.2 patient given supplemental potassium in the emergency department by mouth. Covid, influenza, RSV negative. Chest x-ray shows no acute infiltrate with COPD changes present. Patient will be started on a course of prednisone and advised to increase her nebulizer use. Patient initiated chemotherapy patient stable at discharge. Case discussed with Dr. Del Rosario Undiagnosed new problem with uncertain prognosis? @ -No Drug Therapy requiring intensive monitoring for toxicity (Heparin, Nitro, Insulin, Cardizem)? @ -No Were any procedures done? @ -No Diagnosis/symptom? @ -COPD exacerbation Acute, or Chronic, or Acute on Chronic? @ -[id number] Uncomplicated (without systemic symptoms) or Complicated (systemic symptoms)? @ -uncomplicated Side effects of treatment? @ -No Exacerbation, Progression, or Severe Exacerbation? @ -No Poses a threat to life or bodily function? How? (Chest pain, [place], OK, pneumonia, PE, COPD, DKA, ARF, appy, cholecystitis, CVA, Diverticulitis, Homicidal, Suicidal, threat to staff... and all critical care pts) @ -No - Lab Data Result diagrams: 04/09/23 15:17 04/09/23 15:17 Lab Results 04/09/23 04/09/23 04/09/23 Range/Units 15:17 15:17 15:17 WBC 7.9 (3.8-10.6) k/uL RBC 4.65 (3.80-5.40) m/uL Hgb 14.2 (11.4-16.0) gm/dL Hct 41.3 (34.0-46.0) % MCV 88.9 (80.0-100.0) fL MCH 30.6 (25.0-35.0) pg MCHC 34.4 (31.0-37.0) g/dL RDW 13.1 (11.5-15.5) % Plt Count 233 (150-450) k/uL MPV 7.9 Neutrophils % 69 % Lymphocytes % 19 % Monocytes % 8 % Eosinophils % 1 % Basophils % 1 % Neutrophils # 5.5 (1.3-7.7) k/uL Lymphocytes # 1.5 (1.0-4.8) k/uL Monocytes # 0.6 (0-1.0) k/uL Eosinophils # 0.1 (0-0.7) k/uL Basophils # 0.1 (0-0.2) k/uL PT 10.3 (10.0-12.5) sec INR 0.9 (<1.2) APTT 23.3 (22.0-30.0) sec Sodium 136 L (137-145) mmol/L Potassium 3.2 L (3.5-5.1) mmol/L Chloride 100 (98-107) mmol/L Carbon Dioxide 25 (22-30) mmol/L Anion Gap 11 mmol/L BUN 21 H (7-17) mg/dL Creatinine 1.07 H (0.52-1.04) mg/dL Est GFR (CKD-EPI)AfAm 60 (>60 ml/min/1.73 sqM) Est GFR (CKD-EPI)NonAf 52 (>60 ml/min/1.73 sqM) Glucose 94 (74-99) mg/dL Plasma Lactic Acid [place] (0.7-2.0) mmol/L Calcium 9.3 (8.4-10.2) mg/dL Total Bilirubin 0.7 (0.2-1.3) mg/dL AST 27 (14-36) U/L ALT 19 (4-34) U/L Alkaline Phosphatase 112 (38-126) U/L Total Protein 6.6 (6.3-8.2) g/dL Albumin 4.1 (3.5-5.0) g/dL Influenza Type A (PCR) (Not Detectd) Influenza Type B (PCR) (Not Detectd) RSV (PCR) (Not Detectd) SARS-CoV-2 (PCR) (Not Detectd) 04/09/23 04/09/23 Range/Units 15:17 15:17 WBC (3.8-10.6) k/uL RBC (3.80-5.40) m/uL Hgb (11.4-16.0) gm/dL Hct (34.0-46.0) % MCV (80.0-100.0) fL MCH (25.0-35.0) pg MCHC (31.0-37.0) g/dL RDW (11.5-15.5) % Plt Count (150-450) k/uL MPV Neutrophils % % Lymphocytes % % Monocytes % % Eosinophils % % Basophils % % Neutrophils # (1.3-7.7) k/uL Lymphocytes # (1.0-4.8) k/uL Monocytes # (0-1.0) k/uL Eosinophils # (0-0.7) k/uL Basophils # (0-0.2) k/uL PT (10.0-12.5) sec INR (<1.2) APTT (22.0-30.0) sec Sodium (137-145) mmol/L Potassium (3.5-5.1) mmol/L Chloride (98-107) mmol/L Carbon Dioxide (22-30) mmol/L Anion Gap mmol/L BUN (7-17) mg/dL Creatinine (0.52-1.04) mg/dL Est GFR (CKD-EPI)AfAm (>60 ml/min/1.73 sqM) Est GFR (CKD-EPI)NonAf (>60 ml/min/1.73 sqM) Glucose (74-99) mg/dL Plasma Lactic Acid [place] 0.9 (0.7-2.0) mmol/L Calcium (8.4-10.2) mg/dL Total Bilirubin (0.2-1.3) mg/dL AST (14-36) U/L ALT (4-34) U/L Alkaline Phosphatase (38-126) U/L Total Protein (6.3-8.2) g/dL Albumin (3.5-5.0) g/dL Influenza Type A (PCR) Not Detected (Not Detectd) Influenza Type B (PCR) Not Detected (Not Detectd) RSV (PCR) Not Detected (Not Detectd) SARS-CoV-2 (PCR) Not Detected (Not Detectd) Disposition Clinical Impression: COPD exacerbation, URI (upper respiratory infection) Disposition: HOME SELF-CARE Condition: Stable Instructions (If sedation given, give patient instructions): Upper Respiratory Infection (ED), COPD (Chronic Obstructive Pulmonary Disease) (ED) Additional Instructions: Follow up with your primary care provider. Return to the emergency department for new or worsening symptoms. Prescriptions: predniSONE 50 mg PO DAILY #5 tab Is patient prescribed a controlled substance at d/c from ED?: No Referrals: [facility],Clinic [Primary Care Provider] - 1-2 days
[2023-04-09 15:32] LABS: Basophils # (A) 0.1 k/uL (0-0.2); Basophils % (A) 1 %; Eosinophils # (A) 0.1 k/uL (0-0.7); Eosinophils % (A) 1 %; HCT 41.3 % (34.0-46.0); HGB 14.2 gm/dL (11.4-16.0); Lymphocytes # (A) 1.5 k/uL (1.0-4.8); Lymphocytes % (A) 19 %; MCH 30.6 pg (25.0-35.0); MCHC 34.4 g/dL (31.0-37.0); MCV 88.9 fL (80.0-100.0); Mean Platelet Volume 7.9; Monocytes # (A) 0.6 k/uL (0-1.0); Monocytes % (A) 8 %; Neutrophils # (A) 5.5 k/uL (1.3-7.7); Neutrophils % (A) 69 %; Platelet Count 233 k/uL (150-450); RBC 4.65 m/uL (3.80-5.40); RDW 13.1 % (11.5-15.5); WBC 7.9 k/uL (3.8-10.6)
[2023-04-09 15:44] LABS: INR 0.9 (<1.2); Partial Thromboplastin Time 23.3 sec (22.0-30.0); Prothrombin Time 10.3 sec (10.0-12.5)
[2023-04-09 15:53] LABS: ALT 19 U/L (4-34); AST 27 U/L (14-36); African American GFR (CKD) 60 (>60 ml/min/1.73 sqM); Albumin 4.1 g/dL (3.5-5.0); Alkaline Phosphatase 112 U/L (38-126); Anion Gap 11 mmol/L; Blood Urea Nitrogen 21 mg/dL (7-17); Calcium 9.3 mg/dL (8.4-10.2); Carbon Dioxide 25 mmol/L (22-30); Chloride 100 mmol/L (98-107); Glucose 94 mg/dL (74-99); Non-African American GFR(CKD) 52 (>60 ml/min/1.73 sqM); Potassium 3.2 mmol/L (3.5-5.1); Sodium 136 mmol/L (137-145); Total Bilirubin 0.7 mg/dL (0.2-1.3); Total Protein 6.6 g/dL (6.3-8.2)
[2023-04-09] MEDS ORDERED: POTASSIUM CHLORIDE ER 20 MEQ TAB.ER PO STA (15:56)
--- NOTE | 2023-04-09 16:07 | XR ---
EXAMINATION TYPE: XR chest 2V DATE OF EXAM: 04/09/2023 3:45 PM CLINICAL INDICATION:Female, 72 years old with history of difficulty breathing; [facility] COMPARISON: Chest radiographs from 06/23/2022. TECHNIQUE: XR chest 2V Frontal and lateral views of the chest. FINDINGS: Lungs/Pleura: There is flattening of the diaphragm with increased lucency of the lungs. No evidence o f pneumothorax, pleural effusion or focal consolidation. Pulmonary vascularity: Unremarkable. Heart/mediastinum: Cardiomediastinal silhouette is unremarkable. Musculoskeletal: No acute osseous pathology. IMPRESSION: 1. No acute cardiopulmonary disease process. 2. COPD changes.
[2023-04-09] MEDS ORDERED: methylPREDNISolone SOD SUCCI 125 MG/2 ML VIAL IV STA (16:37)
[2023-04-09 19:27] VITALS: BP 155/73; PULSE 64; RESP 20
== END 2023-04-09 17:04 | disposition home or self-care (01) ==
LOC: EC 14:17
DX: J44.1 Chronic obstructive pulmonary disease with (acute) exacerbation (principal); J06.9 Acute upper respiratory infection, unspecified; I44.0 Atrioventricular block, first degree; E11.9 Type 2 diabetes mellitus without complications; I10 Essential (primary) hypertension; I25.2 Old myocardial infarction; F32.A Depression, unspecified; F41.9 Anxiety disorder, unspecified; E07.9 Disorder of thyroid, unspecified; Z20.822 Contact with and (suspected) exposure to COVID-19; Z79.890 Hormone replacement therapy; Z79.51 Long term (current) use of inhaled steroids; Z79.82 Long term (current) use of aspirin; Z79.84 Long term (current) use of oral hypoglycemic drugs; Z79.899 Other long term (current) drug therapy; Z88.1 Allergy status to other antibiotic agents; Z88.5 Allergy status to narcotic agent; Z88.6 Allergy status to analgesic agent; Z88.8 Allergy status to other drugs, medicaments and biological substances
CPT/HCPCS: 36415; 93005; 80053; 83605; 85025; 85610; 85730; 87636; 71046; 99285; 96374; J2930

== ENCOUNTER → 2023-05-16 | Outpatient (CLI) | payer OTHER ==
--- NOTE | 2023-05-16 13:08 | CT ---
EXAMINATION TYPE: CT chest wo con CT DLP: 232.30 mGycm, Automated exposure control for dose reduction was used. DATE OF EXAM: 05/16/2023 12:48 PM COMPARISON: 05/05/2022 CLINICAL INDICATION:Female, 72 years old with history of R91.1 SOLITARY PULMONARY NODULE; PHH, Solita ry pulmonary nodule TECHNIQUE: Multiple axial images were obtained through the chest. Sagittal and coronal reformats were created for review. Contrast used: mL of (None if empty) Oral contrast used: (None if empty) FINDINGS: LUNGS/ PLEURA: Centrilobular emphysema Enlarging pulmonary nodules. Changes are seen throughout the lungs. No focal consolidation, pneumotho rax or pleural effusion. Right intrafissural lymph node is unchanged measuring 5 mm series 3 image 27 . Left lower lobe 5 mm pulmonary nodule series 3 image 37 is stable. AIRWAY: Patent and unremarkable. HEART: Size within normal limits. Mild to moderate calcifications. MEDIASTINUM: No gross evidence of adenopathy. VASCULATURE: No aortic aneurysm. MUSCULOSKELETAL: No acute osseous abnormalities SOFT TISSUES/LYMPH NODES: The breasts are surgically absent. LOWER NECK: No significant findings. UPPER ABDOMEN: No significant findings. IMPRESSION: 1. No new or enlarging pulmonary nodules. Stable pulmonary nodules. Consider yearly low-dose lung ca ncer screening. 2. Moderate emphysema. Follow up recommendations for incidental pulmonary nodules, if there are any, are per [employer] or [employer]. [email or web address].org/[email or web address]?lang=us
== END | disposition home or self-care (01) ==
LOC: RADCTMAIN 12:20
PROVIDERS: ATTEND Family Medicine
DX: J43.2 Centrilobular emphysema (principal); R91.1 Solitary pulmonary nodule; R91.8 Other nonspecific abnormal finding of lung field
CPT/HCPCS: 71250

== ENCOUNTER → 2023-11-08 | Outpatient (CLI) | payer OTHER ==
--- NOTE | 2023-11-08 17:05 | MR ---
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 COMPARISON: 07/20/2022. TECHNIQUE: Multi planar, multi sequence imaging was performed utilizing: T1-weighted, T2-weighted, a nd turbo inversion recovery imaging of the lumbar spine. IV Contrast: cc . (None if empty) FINDINGS: Alignment: The lumbar vertebral bodies have preserved heights and alignment. Cord: The conus medullaris and the distal spinal cord appear unremarkable with regards to their signa l intensity and morphology. Bones/Discs: Multilevel disc degeneration changes with osteophyte formation, disc space narrowing, Sc hmorl's nodes, and facet joint arthropathy. Multilevel disc desiccation is present. No abnormal inve rsion recovery signal to suggest bony edema. T12-L1: No evidence of significant spinal canal stenosis or neural foraminal stenosis. L1-L2: No evidence of significant spinal canal stenosis or neural foraminal stenosis. L2-L3: Disc bulge and facet joint arthropathy without significant spinal canal stenosis and mild bila teral neural foraminal stenosis. L3-L4: No evidence of significant spinal canal stenosis. Facet joint arthropathy mild bilateral neura l foraminal stenosis. L4-L5: Disc bulge and facet joint arthropathy result in moderate to severe spinal canal and moderate to severe right and severe left neural foraminal stenosis. L5-S1: Disc bulge and facet joint arthropathy result in moderate spinal canal and moderate bilateral neural foraminal stenosis. No significant spinal canal or neural foraminal stenosis in the remainder of the visualized levels. Other findings: None. IMPRESSION: 1. Moderate to severe changes with moderate to severe L4-L5 and moderate L5-S1 bilaterally canal martine nosis. 2. Neural femoral stenosis worse at L5-S1 with moderate bilateral and L4-5 with moderate to severe r ight and severe left neural foraminal stenosis.
== END | disposition home or self-care (01) ==
LOC: RADMRIMAIN 08:57
PROVIDERS: ATTEND Family Medicine
DX: M48.061 Spinal stenosis, lumbar region without neurogenic claudication (principal)
CPT/HCPCS: 72148

== ENCOUNTER → 2023-12-04 | Outpatient (CLI) | payer OTHER ==
[2023-12-04 16:04] LABS: Basophils # (A) 0.06 X 10*3/uL (0.00-0.10); Eosinophils # (A) 0.09 X 10*3/uL (0.04-0.35); Eosinophils % (A) 1.5 %; HCT 39.6 % (39.6-50.0); Lymphocytes # (A) 1.69 X 10*3/uL (0.90-5.00); Lymphocytes % (A) 29.1 %; MCH 29.3 pg (27.0-32.0); MCHC 32.8 g/dL (32.0-37.0); MCV 89.2 FL (80.0-97.0); Mean Platelet Volume 10.4 FL (9.5-12.2); Monocytes # (A) 0.78 X 10*3/uL (0.20-1.00); Monocytes % (A) 13.4 %; NRBC Per 100 WBC 0.03 X 10*3/uL (0.00-0.01); Neutrophils # (A) 3.14 X 10*3/uL (1.80-7.70); Neutrophils % (A) 54.1 %; Platelet Count 259 X 10*3/uL (140-440); RBC 4.44 X 10*6/uL (4.40-5.60); RDW 14.4 % (11.5-14.5); WBC 5.81 X 10*3/uL (4.50-10.00)
[2023-12-04 16:44] LABS: BUN/Creat Ratio 15.25 Ratio (12.00-20.00); Blood Urea Nitrogen 18.3 mg/dL (9.0-27.0); Calcium 10.1 mg/dL (8.7-10.3); Carbon Dioxide 27.5 mmol/L (21.6-31.8); Chloride 97 mmol/L (96-109); Glucose 125 mg/dL (70-110); Potassium 4.5 mmol/L (3.5-5.5); Sodium 138 mmol/L (135-145)
[2023-12-04 17:20] LABS: INR 0.99 sec (0.93-1.11); Prothrombin Time 10.7 sec (9.9-11.9)
== END | disposition home or self-care (01) ==
LOC: LABPAT 08:33
PROVIDERS: ATTEND Orthopaedic Surgery
DX: Z01.818 Encounter for other preprocedural examination (principal); I44.0 Atrioventricular block, first degree; I51.89 Other ill-defined heart diseases; M16.11 Unilateral primary osteoarthritis, right hip; R94.31 Abnormal electrocardiogram [ECG] [EKG]
CPT/HCPCS: 80048; 85025; 85610; 93005

== ENCOUNTER → 2023-12-25 | Outpatient (CLI) | payer OTHER | END | disposition home or self-care (01) | LOC: LABWHC1 07:57 | PROVIDERS: ATTEND Orthopaedic Surgery | DX: Z01.818 Encounter for other preprocedural examination | CPT/HCPCS: 86850; 86900; 86901; 87070 ==

== ENCOUNTER 2024-01-01 05:42 | Day surgery (SDC) | payer OTHER ==
[2023-12-25 11:14] VITALS: BMI 27.3
--- NOTE | 2023-12-31 12:48 | HP ---
HISTORY AND PHYSICAL ANTICIPATED DATE OF SURGERY: Her surgery is scheduled for 01/01/2024. Henny Enriquez is a patient who is seen with symptomatic right hip osteoarthritis. We discussed options regarding treatment. She elected to proceed with direct anterior right total hip arthroplasty. Consent regarding the procedure was obtained. Pulmonary clearance provided by Dr. ANURADHA Steele. Cardiac clearance by Dr. De Leon. PAST MEDICAL HISTORY: COPD, hypothyroidism, cardiovascular disease. PAST SURGICAL HISTORY: Noncontributory. DAILY MEDICATIONS: 1. Albuterol. 2. Amlodipine. 3. Glipizide. 4. Hydrochlorothiazide. 5. Levothyroxine. 6. Metoprolol. 7. Simvastatin. ALLERGIES: None reported. SOCIAL HISTORY: She denies current tobacco use. PHYSICAL EVALUATION OF RIGHT HIP: She has limited range of motion with severe pain. Positive hip impingement sign. Straight-leg raise is negative. Her distal neurovascular exam is intact. RADIOGRAPHS: Right hip radiographs reveal severe osteoarthritic changes. IMPRESSION: 1. Right hip osteoarthritis. 2. Hypertension. 3. Hyperlipidemia. 4. Asthma/chronic obstructive pulmonary disease. PLAN: Direct anterior right total hip arthroplasty. MMODL / IJN: [id number] /
[~2024-01-01 05:42] MED LIST changes: -LACTATED RINGERS 1,000 ML IV SCH; -LIDOCAINE 1% 20 ML VIAL (10MG/ML) FOR IV START INTRADERMA PRN; +TRANEXAMIC 1,000 MG/100ML-NACL 1,000 MG in SALINE 1 100ML.BAG IVPB PRN
[2024-01-01] MEDS ORDERED: LIDOCAINE 1% (10MG/ML) FOR IV START INTRADERMA PRN (06:06)
[2024-01-01 06:50] LABS: Glucose,Whole Blood 119 mg/dL (70-110)
[2024-01-01] MEDS: LACTATED RINGERS 1,000 ML IV SCH (06:51)
[2024-01-01] MEDS ORDERED: HYDROmorphone 0.5 MG/0.5 ML SYRINGE IVP PRN ×3 (07:00→09:06)
[2024-01-01] MEDS: ACETAMINOPHEN TAB 500 MG TAB PO PRN (07:01)
[2024-01-01] MEDS: ONDANSETRON 4 MG/2 ML VIAL IVP ONE (07:01)
[2024-01-01] MEDS: DEXAMETHASONE SOD PHOSPHATE 4 MG/ML 1 ML VIAL IVP STA (07:01)
[2024-01-01] MEDS: IV FLUID CONTINUATION 1,000 ML IV ONE (07:06)
[2024-01-01] MEDS: fentaNYL (PF) 50 MCG/ML 2 ML AMP IVP PRN (07:23)
[2024-01-01] MEDS: MIDAZOLAM 2 MG/2 ML VIAL IV ONE (07:25)
[2024-01-01] MEDS ORDERED: TRANEXAMIC 1,000 MG/100ML-NACL PREMIX BAG ONE (07:30)
[2024-01-01] MEDS ORDERED: fentaNYL (PF) 50 MCG/ML 2 ML AMP ONE (07:30)
[2024-01-01] MEDS ORDERED: MIDAZOLAM 2 MG/2 ML VIAL ONE (07:30)
[2024-01-01] MEDS ORDERED: PROPOFOL 10 MG/ML 20 ML VIAL IV ONE (07:30)
[2024-01-01] MEDS ORDERED: ROPIVACAINE 5 MG/ML 30 ML VIAL ONE (07:30)
[2024-01-01] MEDS: LACTATED RINGERS 1,000 ML IV ONE (09:00)
[2024-01-01] MEDS ORDERED: HYDROcodone/APAP 5-325MG 1 EACH TAB PO PRN (09:06)
[2024-01-01] MEDS ORDERED: ONDANSETRON 4 MG/2 ML VIAL IVP PRN (09:06)
[2024-01-01] MEDS ORDERED: NALOXONE 0.4 MG/ML 1 ML VIAL IV PRN (09:06)
--- NOTE | 2024-01-01 09:06 | P.OP ---
Date of Procedure: 01/01/24 Preoperative Diagnosis: Right hip osteoarthritis Postoperative Diagnosis: Right hip osteoarthritis Procedure(s) Performed: Direct anterior right total hip arthroplasty Implants: 1. DePuy [place] 135 degree standard collared KA size 10 press-fit femoral stem 2. DePuy [place] 52 mm press-fit acetabular shell 3. DePuy [place] neutral polyethylene acetabular liner 36 mm ID 52 mm OD 4. Biolox delta ceramic femoral head +1.5 36 mm Anesthesia: regional (Erector spinae block), spinal Surgeon: Shai Laird Vmware Engineer #1: Devon Soria Estimated Blood Loss (ml): 45 Pathology: none sent Condition: stable Disposition: PACU Indications for Procedure: 73-year-old patient seen with symptomatic right hip osteoarthritis. After having treatment options discussed, she elected to proceed with direct anterior right total hip arthroplasty. Operative Findings: See description of procedure Description of Procedure: The patient was taken to the operative suite. Patient underwent a spinal anesthetic by the department of anesthesia. Patient was then transferred to the [place] table. Patient was given preoperative IV antibiotics and TXA. Both lower extremities were placed in standard leg spars. The hip was then prepped and draped in the normal sterile orthopedic fashion. A standard anterior incision was made beginning 3 cm lateral and 1 cm distal to the ASIS extending 10 cm. Dissection was then carried down through the subcutaneous soft tissues down to the fascia overlying the tensor fascia dutch. An incision was now made through the fascia. Careful dissection was taken down exposing the tensor fascia dutch muscle. A Cobra retractor was now placed along the medial femoral neck and a second one along the lateral femoral neck. The venous circumflex vessels were now identified, cauterized and clipped. We identified the anterior hip capsule. An incision was made through the hip capsule along the lateral border. I performed a partial anterior capsulectomy. Retractors were now placed around the femoral neck itself. A femoral neck cut was now made with a sagittal saw. It was completed with an osteotome at the lateral neck area. The femoral head was now removed without difficulty. The extremity was now rotated to 60 of external rotation. It was locked in position. Residual labrum was now debrided out. Serial reaming was performed of the acetabulum while Tejinder ANDRADE assisted holding an anterior retractor for exposure. Once we reached the appropriate size and a trial was position and fit nicely. The appropriate size was now chosen opened and made available. It was introduced into the acetabulum without difficulty. The C-arm/fluoroscopy was now brought into the operative field. We made sure we had a true AP pelvic view. We now under direct C- arm/fluoroscopy introduced into the acetabular component with appropriate version and inclination. I held the cup in appropriate position well Tejinder ANDRADE used a mallet to seat the acetabular component. I noted the component now to be well seated and stable. Acetabular cup introduce her was removed. The C-arm was pulled back. An appropriate liner was introduced and clicked into position. It was felt to be stable. At this point retractors were removed. The extremity was now placed into 140 external rotation with no traction. The leg was now dropped to the ground and adducted. Appropriate retractors were now positioned along the proximal femur. We also placed our femoral look into position. Additional capsular releasing was performed to gain access to the pro ximal femur. We now used a box osteotome. A canal finder was now utilized. Serial broaching was now performed with the assistance of Tejinder ANDRADE tapping the broaches down with a mallet while held the broach in appropriate rotation and position. This was done until we reached the appropriate size with good overall rotational stability. Appropriate calcar planing was performed. A trial head/neck was placed into position. The hip was now reduced. The C- arm/fluoroscopy was brought back into the operative field. I obtained an AP pelvis demonstrating adequate positioning of the components. The C- arm/fluoroscopy was pulled back. Retractors were repositioned and the hip was dislocated. The leg was again taken down to the ground and adducted. Appropriate retractors were repositioned as well as the femoral hook. All trial components were removed. The femoral implant was opened along with the femoral head. The femoral implant was introduced on the appropriate handle into our p re-broached area. I held the component position well Tejinder ANDRADE used a mallet to seat the femoral component. The femoral component was now noted to be well seated and stable.. The femoral head was introduced with good positioning and fixation noted. Retractors were now removed. The hip was now reduced. There appeared be good positioning of the hip confirmed on intraoperative fluoroscopy. Spot films were obtained to document this. A second gram of TXA was given. Bipolar cautery had been utilized intermittently through the procedure for hemostasis. The wound was irrigated copiously with pulse lavage mechanical irrigation. The fascia was repaired with Vicryl suture. The subcutaneous soft tissues were repaired in layers with Vicryl suture. The skin was approximated with pernio/Dermabond. Sterile dressings were applied. Patient was then awakened, transferred to a bed and taken to recovery in stable condition. Tejinder ANDRADE assisted with the complex procedure.
--- NOTE | 2024-01-01 10:59 | P.ANPRN ---
Procedure Note - Anesthesia - Nerve Block Performed Right [place] Single Time Out Performed: Yes ([id number]) Date of Procedure: 01/01/24 Procedure Start Time: :08 Procedure Stop Time: :12 Location of Patient: PreOp Indication: Acute Post-Operative Pain, Requested by Surgeon Specifically requested for management of pain by DrAntonio: Shai Laird Sedation Type: Sedate with meaningful contact maintained Preparation: Sterile Prep Position: Supine Catheter: None Needle Types: Pajunk Needle Gauge: 21 Ultrasound used to visualize needle placement: Yes Ultrasound used to observe medication spread: Yes Injectate: 0.5% Ropivacaine (see comment for volume) (30cc) Blood Aspirated: No Pain Paresthesia on Injection Noted: No Resistance on Injection: Normal Image Stored and Saved: Yes Events: Uneventful and Well Tolerated
[2024-01-01] MEDS ORDERED: MULTIVITAMINS, THERA 1 EACH TAB PO SCH (12:00)
[2024-01-01] MEDS: Pre Op ABX Message 1 EACH MISC MISCELLANE ONE (15:04)
[2024-01-01] MEDS: SODIUM CHLORIDE 0.9% 1,000 ML IV SCH (15:08)
[2024-01-01] MEDS: HYDROcodone/APAP 7.5-325MG 1 EACH TAB PO PRN (15:21)
[2024-01-01] MEDS ORDERED: IPRATROPIUM-ALBUTEROL 3 ML NEB INHALATION PRN (16:17)
[2024-01-01 16:37] LABS: Glucose,Whole Blood 223 mg/dL (70-110)
[2024-01-01] MEDS: LEVOTHYROXINE 88 MCG TAB PO SCH (16:39)
[2024-01-01] MEDS ORDERED: DEXTROSE 50% SYRINGE 50 ML IVP PRN ×2 (17:26)
--- NOTE | 2024-01-01 17:38 | P.CONS ---
History of Present Illness - Reason for Consult Consult date: 01/01/24 Medical Management Requesting physician: Shai Laird - History of Present Illness History of Presenting Illness: Patient is a very pleasant 73-year-old female with a past medical history of CAD status post stent, hypertension, hyperlipidemia, [id number] diabetes mellitus, hypothyroidism, COPD home oxygen dependent on 2 L as needed, renal cell carcinoma status post left nephrectomy, and obstructive sleep apnea CPAP dependent. She is currently admitted under orthopedic surgery team status post elective right total hip arthroplasty. Surgical procedure was completed secondary to severe right hip osteoarthritis and was completed by Dr. Laird. We were consulted for medical management throughout patient's hospitalization. Patient was seen and fully evaluated in room 474 status post completion of right total hip arthroplasty. She was eating dinner at time of assessment. Patient reports having moderate pain to right hip and is currently rating 8 out of 10 at this time. She states the pain radiates down into her thigh and right knee. She denies having any postoperative nausea or vomiting and has been ambulating with assistance to and from restroom. She denies any difficulties with urination. Patient denies any other complaints including headache, lightheadedness, dizziness, chest pain, palpitations, shortness of breath, or experiencing any numbness or focal weakness in her extremities. Review of systems: Pertinent positives and negatives as discussed in HPI, a complete review of systems was performed and all other systems are negative. Physical exam: Vital signs reviewed and stable. General: Nontoxic, no distress and appears stated age. Derm: Skin warm and dry, normal coloration for ethnicity. Head: Atraumatic, normocephalic and symmetric. Eyes: EOM's intact, no lid lag, and anicteric sclera Mouth: no lip lesions, mucus membranes moist Cardiovascular: regular rate and rhythm with normal S1S2, no murmur, positive posterior tibial pulses bilaterally, and cap refill < 2 seconds. Lungs: Respirations even, regular, and unlabored on room air. Lungs CTA bilaterally, no rhonchi, no rales, no wheezing, and no accessory muscle usage. Abdominal: soft, nontender to palpation, no guarding, no appreciable organom egaly Ext: No gross muscle atrophy, no edema, no contractures. Movement and sensation intact. Postoperative dressing in place right hip. Neuro: Speech clear, face symmetrical and CN II-XII grossly intact with no noted focal neuro deficits Psych: Alert and oriented to person, place, time, and situation. Appropriate and pleasant affect. Assessment and Plan of Care: Status post right total hip arthroplasty Management by primary admitting orthopedic surgery team including DVT prophylaxis, pain management, wound/dressing management, weightbearing, and PT/OT. Currently on DVT prophylaxis with aspirin 325 mg twice daily. [id number] diabetes mellitus type 2 with hyperglycemia Hold glipizide and place patient on glycemic protocol with NovoLog sliding scale. CAD status post stent Hypertension Hyperlipidemia Continue medication regimen with amlodipine 5 mg daily, atorvastatin 20 mg nightly, hydrochlorothiazide 25 mg daily, irbesartan 150 mg daily, and metoprolol 50 mg twice daily. COPD with home oxygen dependent on 2 L as needed, stable and at baseline not in exacerbation Obstructive sleep apnea CPAP dependent nightly Continue with supplemental oxygen as needed to maintain SpO2 equal to or greater than 90%. Continue nebulizers 4 times daily as needed for shortness of breath and/or wheezing, Singulair 10 mg daily, and Pulmicort 0.5 mg twice daily. Hypothyroidism Continue daily medication regimen with levothyroxine 88 mcg daily. Data and imaging reviewed: Reviewed postoperative report. Labs reviewed. Blood glucose elevated at 223. Vital signs reviewed. Blood pressure 138/66, heart rate 65, respiratory rate 17, temp 96.3 F axillary and SpO2 of 97% on 2 L O2. Thank you for allowing us to participate in the care of this pleasant patient. Do not hesitate to contact us with questions. Someone can be reached from the [facility] hospitalist group all hours of the day at [phone] or via perfect serve. Patient was seen independently by Nurse Practitioner. This document was prepared using [employer] dictation software. Please allow for errors in medical corps officer while rare they do occur. I reviewed the documentation as provided by the JAMIE above, who is the original author of this note. I agree with the documented assessment and plan, with the following changes: none Past Medical History Past Medical History: Asthma, Cancer, COPD, Diabetes Mellitus, Hearing Disorder / Deafness, Hyperlipidemia, Hypertension, Myocardial Infarction ([place]), Osteoarthritis ([place]), Sleep Apnea/CPAP/BIPAP, Thyroid Disorder Additional Past Medical History / Comment(s): CHRONIC BRONCHITIS, HX LEFT KIDNEY CANCER WITH NEPHRECTOMY, SOME HEARING LOSS, CPAP USE, O2 USE PRN. Last Myocardial Infarction Date:: 2006 History of Any Multi-Drug Resistant Organisms: None Reported Past Surgical History: Breast Surgery, Heart Catheterization, Hysterectomy, Orthopedic Surgery, Tonsillectomy, Tubal Ligation Additional Past Surgical History / Comment(s): BILATERAL SALPINGECTOMY AND OOPHERECTOMY, LEFT KIDNEY REMOVED 2014, GENDER CHANGE SURGERY -BREASTS REMOVED, RIGHT ELBOW SURGERY, LEFT KNEE SURGERY. Past Anesthesia/Blood Transfusion Reactions: No Reported Reaction Smoking Status: Former smoker - Past Family History Son(s) Family Medical History: Cancer Additional Family Medical History / Comment(s): THROAT CANCER. Brother(s) Family Medical History: Cancer Additional Family Medical History / Comment(s): LUNG CANCER. Father Family Medical History: Cancer Additional Family Medical History / Comment(s): LUNG CANCER. Sister(s) Family Medical History: Cancer Additional Family Medical History / Comment(s): KIDNEY CANCER, PANCREATIC CANCER. Medications and Allergies Home Medications Medication Instructions Recorded Confirmed Type Levothyroxine Sodium [Synthroid] 88 mcg PO MOTUWETHFRSA 10/22/18 12/25/23 History Metoprolol Tartrate [Lopressor] 50 mg PO BID 10/22/18 12/25/23 History Acetaminophen-Codeine 300-30mg 1 - 2 tab PO Q4-6H PRN 12/25/23 12/25/23 History [Tylenol w/codeine #3] Budesonide [Pulmicort] 0.5 mg INHALATION BID 12/25/23 12/25/23 History Ipratropium [place] [Atrovent Hfa] 2 puff INHALATION QID PRN 12/25/23 12/25/23 History Irbesartan 150 mg PO QAM 12/25/23 12/25/23 History Montelukast [Singulair] 10 mg PO QAM 12/25/23 12/25/23 History Simvastatin 40 mg PO HS 12/25/23 01/01/24 History Vitamin C + Vitamin D 1 tab PO DAILY 12/25/23 12/25/23 History amLODIPine [Norvasc] 5 mg PO QAM 12/25/23 12/25/23 History glipiZIDE [glipiZIDE ER] 2.5 mg PO DAILY 12/25/23 01/01/24 History hydroCHLOROthiazide 25 mg PO DAILY 12/25/23 01/01/24 History Allergies Allergy/AdvReac Type Severity Reaction Status Date / Time cefaclor [From Ceclor] Allergy Rash/Hives, Verified 01/01/24 06:35 SHORTNESS OF BREATH Cephalosporins Allergy Rash/Hives Verified 01/01/24 06:35 etodolac Allergy VISION Verified 01/01/24 06:35 PROBLEMS meloxicam [From Mobic] Allergy Unknown Verified 01/01/24 06:35 ibuprofen AdvReac Due to Verified 01/01/24 06:35 Nephrectomy Physical Exam Osteopathic Statement: *. No significant issues noted on an osteopathic structural exam other than those noted in the History and Physical/Consult. Vitals: Vital Signs Temp Pulse Resp BP Pulse Ox 01/01/24 14:47 96.3 F L 65 17 138/66 97 01/01/24 12:30 53 L 18 119/54 100 01/01/24 12:00 61 18 119/64 100 01/01/24 11:30 53 L 18 112/57 100 01/01/24 11:00 54 L 18 135/54 100 01/01/24 10:45 56 L 18 136/74 100 01/01/24 10:30 54 L 18 145/67 100 01/01/24 10:15 54 L 18 145/67 100 01/01/24 10:00 56 L 18 114/56 100 01/01/24 09:45 51 L 12 120/61 100 01/01/24 09:30 54 L 12 113/64 100 01/01/24 09:16 98.7 F 56 L 12 110/57 100 01/01/24 06:28 97.6 F 50 L 16 152/67 96 Intake and Output 01/01/24 01/01/24 01/01/24 06:59 14:59 22:59 Intake Total 1450 Output Total 45 Balance 1405 Intake: IV 1450 Output: Estimated Blood Loss 45 Results Labs: Abnormal Lab Results - Last 24 Hours (Table) 01/01/24 Range/Units 06:46 POC Glucose (mg/dL) 119 H (70-110) mg/dL
[2024-01-01] MEDS: INSULIN ASPART (NovoLOG) 100 UNIT/ML VIAL SQ SCH (18:24)
[2024-01-01] MEDS: HYDROmorphone 0.5 MG/0.5 ML SYRINGE IVP PRN (18:25)
[2024-01-01 20:25] LABS: Glucose,Whole Blood 166 mg/dL (70-110)
[2024-01-01] MEDS: BUDESONIDE 0.5 MG/2 ML NEBU INHALATION SCH (21:29)
[2024-01-01] MEDS: IPRATROPIUM 0.5 MG/2.5 ML NEBU INHALATION PRN (21:29)
[2024-01-01] MEDS: ASPIRIN 325 MG TAB PO SCH (21:36)
[2024-01-01] MEDS: METOPROLOL TARTRATE 50 MG TAB PO SCH (21:36)
[2024-01-01] MEDS: ATORVASTATIN 20 MG TAB PO SCH (21:36)
[2024-01-01] MEDS: SENNOSIDES-DOCUSATE SODIUM 1 EACH TAB PO SCH (21:36)
[2024-01-02 02:13] VITALS: RESP 17; TEMP 98.1
[2024-01-02 05:35] LABS: Glucose,Whole Blood 145 mg/dL (70-110)
[2024-01-02 09:23] LABS: Basophils # (A) 0.03 X 10*3/uL (0.00-0.10); Basophils % (A) 0.3 %; Eosinophils # (A) 0 X 10*3/uL (0.04-0.35); Eosinophils % (A) 0 %; HCT 33.7 % (39.6-50.0); HGB 11.2 g/dL (13.0-17.0); Lymphocytes # (A) 0.97 X 10*3/uL (0.90-5.00); Lymphocytes % (A) 9.3 %; MCH 29.6 pg (27.0-32.0); MCHC 33.2 g/dL (32.0-37.0); MCV 88.9 FL (80.0-97.0); Mean Platelet Volume 10.5 FL (9.5-12.2); Monocytes % (A) 12.5 %; NRBC Per 100 WBC 0 X 10*3/uL (0.00-0.01); Neutrophils # (A) 8.04 X 10*3/uL (1.80-7.70); Neutrophils % (A) 77.3 %; Platelet Count 222 X 10*3/uL (140-440); RBC 3.79 X 10*6/uL (4.40-5.60); RDW 14.1 % (11.5-14.5)
[2024-01-02] MEDS: MONTELUKAST 10 MG TAB PO SCH (10:12)
[2024-01-02] MEDS: LOSARTAN 50 MG TAB PO SCH (10:13)
[2024-01-02] MEDS: hydroCHLOROthiazide 25 MG TAB PO SCH (10:14)
[2024-01-02] MEDS: FAMOTIDINE 20 MG TAB PO SCH (10:14)
[2024-01-02] MEDS: amLODIPine 5 MG TAB PO SCH (10:15)
--- NOTE | 2024-01-02 11:23 | P.PN ---
Subjective Progress Note Date: 01/02/24 Principal diagnosis: Status post direct anterior right total hip arthroplasty Patient evaluated at bedside, she is resting comfortably in her hospital bed. Patient's pain is well-controlled. She denies any headaches, lightheadedness, chest pain or shortness of breath. She did very well with physical therapy. She is urinating with no issues. Objective - Vital Signs Vital signs: Vital Signs Temp 98.1 F 01/02/24 00:41 Pulse 72 01/02/24 08:54 Resp 17 01/02/24 00:41 BP 130/85 01/02/24 00:41 Pulse Ox 96 01/02/24 00:41 FiO2 Intake & Output 01/01/24 01/02/24 01/02/24 18:59 06:59 18:59 Intake Total 1450 1720 120 Output Total 45 Balance 1405 1720 120 Weight 72.121 kg Intake: IV 1450 Intake, IV Titration 760 Amount Sodium Chloride 0.9% 1, 660 000 ml @ 60 mls/hr IV . [id number] MANISHA Rx#:[id number] ceFAZolin 2 gm In Sodium 100 Chloride 0.9% 50 ml @ 100 mls/hr IVPB Q8HR [facility] Rx# :[id number] Oral 960 120 Output: Estimated Blood Loss 45 Other: Voiding Method Toilet # Voids 1 4 - Exam Right lower extremity: Incision is clean, dry, and intact. The foam dressing is in good condition. There is minimal soft tissue swelling and ecchymosis surrounding the medial and lateral aspects of the incision. Calf is soft, no tenderness with palpation. Plantar flexion, dorsiflexion, EHL, FHL are intact. Sensory exam to light touch throughout the extremity is intact, dorsal pedis pulses 2+. - Labs CBC & Chem 7: 01/02/24 05:09 Labs: Abnormal Lab Results - Last 24 Hours (Table) 01/01/24 01/01/24 01/02/24 Range/Units 16:36 20:22 05:09 WBC (4.50-10.00) X 10*3/uL RBC (4.40-5.60) X 10*6/uL Hgb (13.0-17.0) g/dL Hct (39.6-50.0) % Immature Gran # (0.00-0.04) X 10*3/uL Neutrophils # (1.80-7.70) X 10*3/uL Monocytes # (0.20-1.00) X 10*3/uL Eosinophils # (0.04-0.35) X 10*3/uL POC Glucose (mg/dL) 223 H 166 H (70-110) mg/dL Hemoglobin A1c 6.2 H (<=6.0) % 01/02/24 01/02/24 Range/Units 05:09 05:33 WBC 10.40 H (4.50-10.00) X 10*3/uL RBC 3.79 L (4.40-5.60) X 10*6/uL Hgb 11.2 L (13.0-17.0) g/dL Hct 33.7 L (39.6-50.0) % Immature Gran # 0.06 H (0.00-0.04) X 10*3/uL Neutrophils # 8.04 H (1.80-7.70) X 10*3/uL Monocytes # 1.30 H (0.20-1.00) X 10*3/uL Eosinophils # 0 L (0.04-0.35) X 10*3/uL POC Glucose (mg/dL) 145 H (70-110) mg/dL Hemoglobin A1c (<=6.0) % Assessment and Plan Assessment: Postoperative day #1 status post right total hip arthroplasty Plan: Pain control, plan for discharge home on [place] 7.5 mg / 325 mg. Will also prescribe senna for stool softeners DVT prophylaxis, aspirin 81 mg twice a day for 30 days Wound care instructions discussed, this to include when to remove bandage, icing and elevating, showering instructions Home PT/OT after discharge Medical recommendations appreciated Discharge planning: Stable for discharge home today Time with Patient: Less than 30
[2024-01-02 11:26] LABS: Glucose,Whole Blood 137 mg/dL (70-110)
--- NOTE | 2024-01-02 11:27 | P.DS ---
Providers Date of admission: 01/01/2024 Expected date of discharge: 01/02/24 Attending physician: Shai Laird Consults: 01/01/24 09:06 Consult Physician Routine Consulting Provider: Kian Qureshi Consult Reason/Comments: Medical management Do you want consulting provider notified?: Yes Primary care physician: [facility] Hospital Course: Date of admission: 01/01/2024 Date of discharge: 01/02/2024 Admission diagnosis: Status post direct anterior right total hip arthroplasty Discharge diagnosis: Same Attending physician: Dr. Laird Surgical procedures: Direct anterior right total hip arthroplasty Brief history: Patient is a 73-year-old female with a history of progressive primary right hip osteoarthritis. At this point patient has failed conservative treatment measures and has opted to proceed with a elective direct anterior right total hip arthroplasty. Hospital course: Details of patient's surgery can be found in operative report. Patient tolerated the procedure well and was subsequently transported to orthopedic floor. Patient's orthopeidc and medical care was provided daily. Patient had daily laboratory tests performed for evaluation of overall blood counts. Patient had daily physical therapy to include strengthening range of motion as well as education with walker ambulation. Patient was treated with aspirin for their postoperative DVT prophylaxis during their inpatient stay. Patient was noted to have a relatively uneventful postoperative course. Patient reported satisfactory pain control with oral pain medications by postoperative day 0. Patient showed satisfactory progress with physical therapy. Patient moved steadily through the program and had no difficulty meeting the goals by postoperative day 1. Given patient's otherwise satisfactory course and having met physical therapy goals, plan is to discharge patient to home on postoperative day 1. Discharge condition/disposition: Patient will be discharged home in stable condition. Discharge medications: Instructions are given on resumption of patient's normal daily medications per primary care recommendation, in addition patient will be prescribed [place] 7.5 mg / 325 mg, senna S, aspirin 81 mg. Discharge instructions: 1. Wound care and infection precautions, keep incision dry and covered while showering, no lotions, creams, moisturizers. No soaking, tubs, pools, hottubs. Do not scrub over the incision. 2. Weight-bear as tolerated with walker / cane until follow-up. 3. Ice and elevate when necessary. Do not exceed 20 minutes per hour with ice pack. 4. Utilize compression sleeve until seen at first follow up appointment. 5. Visiting nursing care. 6. Home physical therapy. 7. Pain meds and anticoagulants per prescription. 8. Pain medication has potential to cause constipation. Increase oral fluid and fiber intake. Contact primary care provider if you have not had a bowel movement within 48 hours after discharge 9. No anti-inflammatory medication until discussed at first post operative visit, this including Motrin, Aleve, Mobic, Diclofenac. 10. Follow up in office at 2 weeks postop with Tejinder Soria PA-C/Rob Maradiaga 11. Follow up with your primary care doctor 7-10 days after discharge. 12. Contact [facility] with any questions, . Procedures: Direct anterior right total hip arthroplasty Patient Condition at Discharge: Good Plan - Discharge Summary Discharge Rx Participant: Yes New Discharge Prescriptions: New Aspirin [Adult Low Dose Aspirin EC] 81 mg PO BID #60 tab HYDROcodone/APAP 7.5-325MG [[place] 7.5] 1 each PO Q6HR PRN #28 tab PRN Reason: Pain Sennosides/Docusate Sodium [Senna-S 8.6-50 mg Tablet] 2 each PO DAILY PRN #30 tablet PRN Reason: Constipation No Action Metoprolol Tartrate [Lopressor] 50 mg PO BID Levothyroxine Sodium [Synthroid] 88 mcg PO MOTUWETHFRSA Acetaminophen-Codeine 300-30mg [Tylenol w/codeine #3] 1 - 2 tab PO Q4-6H PRN PRN Reason: Pain Budesonide [Pulmicort] 0.5 mg INHALATION BID Simvastatin 40 mg PO HS Irbesartan 150 mg PO QAM glipiZIDE [glipiZIDE ER] 2.5 mg PO DAILY Montelukast [Singulair] 10 mg PO QAM amLODIPine [Norvasc] 5 mg PO QAM Ipratropium [place] [Atrovent Hfa] 2 puff INHALATION QID PRN PRN Reason: Shortness Of Breath hydroCHLOROthiazide 25 mg PO DAILY Vitamin C + Vitamin D 1 tab PO DAILY Discharge Medication List Levothyroxine Sodium [Synthroid] 88 mcg PO MOTUWETHFRSA 10/22/18 [History] Metoprolol Tartrate [Lopressor] 50 mg PO BID 10/22/18 [History] Acetaminophen-Codeine 300-30mg [Tylenol w/codeine #3] 1 - 2 tab PO Q4-6H PRN 12/25/23 [History] Budesonide [Pulmicort] 0.5 mg INHALATION BID 12/25/23 [History] Ipratropium [place] [Atrovent Hfa] 2 puff INHALATION QID PRN 12/25/23 [History] Irbesartan 150 mg PO QAM 12/25/23 [History] Montelukast [Singulair] 10 mg PO QAM 12/25/23 [History] Simvastatin 40 mg PO HS 12/25/23 [History] Vitamin C + Vitamin D 1 tab PO DAILY 12/25/23 [History] amLODIPine [Norvasc] 5 mg PO QAM 12/25/23 [History] glipiZIDE [glipiZIDE ER] 2.5 mg PO DAILY 12/25/23 [History] hydroCHLOROthiazide 25 mg PO DAILY 12/25/23 [History] Aspirin [Adult Low Dose Aspirin EC] 81 mg PO BID #60 tab 01/02/24 [Rx] HYDROcodone/APAP 7.5-325MG [[place] 7.5] 1 each PO Q6HR PRN #28 tab 01/02/24 [Rx] Sennosides/Docusate Sodium [Senna-S 8.6-50 mg Tablet] 2 each PO DAILY PRN #30 tablet 01/02/24 [Rx] Follow up Appointment(s)/Referral(s): Devon Soria PAC [PHYSICIAN BOTTOM CAGER] - 01/17/24 3:00 pm [facility] [NON-STAFF] - As Needed Activity/Diet/Wound Care/Special Instructions: Orthopedic Discharge Instructions: 1. Wound care and infection precautions, keep incision dry and covered while showering, no lotions, creams, moisturizers. No soaking, pools, hot tubs. Do not scrub over incision. 2. Weight-bear as tolerated with walker / cane until follow-up. 3. Ice and elevate when necessary. Do not exceed 20 minutes per hour with ice pack. 4. Utilize compression sleeve until seen at first follow up appointment. 5. Pain meds and anticoagulants per prescription. 6. Pain medication has potential to cause constipation. Increase oral fluid and fiber intake. Contact primary care provider if you have not had a bowel movement within 48 hours after discharge. 7. No anti-inflammatory medication until discussed at first post operative visit, this including Motrin, Aleve, Mobic, Diclofenac. 8. Follow up in office at 2 weeks postop with Tejinder Soria PA-C/Rob Joiner PA-C 9. Follow up with your primary care doctor 7-10 days after discharge. 10. Contact [facility] with any questions, . Wound care instructions: 1. Okay to remove surgical dressing as of 01/08/2024 2. Okay to shower directly over the incision after removal of dressing Discharge Disposition: HOME WITH HOME HEALTH SERVICES
[2024-01-02] MEDS: MULTIVITAMINS, THERA 1 EACH TAB PO SCH (12:40)
[2024-01-02 14:54] VITALS: BP 112/61
--- NOTE | 2024-01-02 14:54 | P.PN ---
Subjective Progress Note Date: 01/02/24 Hospital course: Patient is a very pleasant 73-year-old female with a past medical history of CAD status post stent, hypertension, hyperlipidemia, rwe-skjayld-rlwjxpnob diabetes mellitus, hypothyroidism, COPD home oxygen dependent on 2 L as needed, renal cell carcinoma status post left nephrectomy, and obstructive sleep apnea CPAP dependent. She is currently admitted under orthopedic surgery team status post elective right total hip arthroplasty. Surgical procedure was completed secondary to severe right hip osteoarthritis and was completed by Dr. Laird. We were consulted for medical management throughout patient's hospitalization. Physical exam: Patient seen and fully evaluated at bedside this morning. She currently reports pain in right hip and leg about 6 out of 10 at this time. She states she just completed working with physical therapy and is looking forward to going home later today. Patient denies having any other complaints, questions, needs, or concerns at this time. Vital signs reviewed and stable. General: Nontoxic, no distress and appears stated age. Derm: Skin warm and dry, normal coloration for ethnicity. Head: Atraumatic, normocephalic and symmetric. Eyes: EOM's intact, no lid lag, and anicteric sclera Mouth: no lip lesions, mucus membranes moist Cardiovascular: regular rate and rhythm with normal S1S2, no murmur, positive posterior tibial pulses bilaterally, and cap refill < 2 seconds. Lungs: Respirations even, regular, and unlabored on room air. Lungs CTA bila terally, no rhonchi, no rales, no wheezing, and no accessory muscle usage. Abdominal: soft, nontender to palpation, no guarding, no appreciable organomegaly Ext: No gross muscle atrophy, no edema, no contractures. Movement and sensation intact. Postoperative dressing in place right hip. Neuro: Speech clear, face symmetrical and CN II-XII grossly intact with no noted focal neuro deficits Psych: Alert and oriented to person, place, time, and situation. Appropriate and pleasant affect. Assessment and Plan of Care: Status post right total hip arthroplasty Management by primary admitting orthopedic surgery team including DVT prophylaxis, pain management, wound/dressing management, weightbearing, and PT/OT. Currently on DVT prophylaxis with aspirin 325 mg twice daily. Idq-sfqizcy-gnxxrqyyr diabetes mellitus type 2 with hyperglycemia Hold glipizide and place patient on glycemic protocol with NovoLog sliding scale throughout hospitalization. Hemoglobin A1c 6.2%, recommend resuming glipizide 2.5 mg daily at discharge. CAD status post stent Hypertension Hyperlipidemia Continue medication regimen with amlodipine 5 mg daily, atorvastatin 20 mg nightly, hydrochlorothiazide 25 mg daily, irbesartan 150 mg daily, and metoprolol 50 mg twice daily. COPD with home oxygen dependent on 2 L as needed, stable and at baseline not in exacerbation Obstructive sleep apnea CPAP dependent nightly Continue with supplemental oxygen as needed to maintain SpO2 equal to or greater than 90%. Continue nebulizers 4 times daily as needed for shortness of breath and/or wheezing, Singulair 10 mg daily, and Pulmicort 0.5 mg twice daily. Hypothyroidism Continue daily medication regimen with levothyroxine 88 mcg daily. Data and imaging reviewed: Postoperative labs reviewed. CBC showing leukocytosis with WBC count of 10.40 and stable normocytic anemia with hemoglobin of 11.2. Blood glucose was 131 and hemoglobin A1c 6.2%. Vital signs reviewed. Blood pressure 130/85, heart rate 76, respiratory rate 17, temp 98.1 F, and SpO2 of 96% on 2 L. Patient is medically optimized and cleared from medical standpoint for discharge once cleared by primary admitting orthopedic surgery team. Thank you for allowing us to participate in the care of this pleasant patient. Do not hesitate to contact us with questions. Someone can be reached from the [facility] hospitalist group all hours of the day at [phone] or via perfect serve. Patient was seen independently by Nurse Practitioner. This document was prepared using [employer] dictation software. Please allow for errors in event security officer while rare they do occur. I reviewed the documentation as provided by the JAMIE above, who is the original author of this note. I agree with the documented assessment and plan, with the following changes: none Objective - Vital Signs Vital signs: Vital Signs Temp 98.1 F 01/02/24 00:41 Pulse 72 01/02/24 08:54 Resp 17 01/02/24 00:41 BP 130/85 01/02/24 00:41 Pulse Ox 96 01/02/24 00:41 FiO2 Intake & Output 01/01/24 01/02/24 01/02/24 18:59 06:59 18:59 Intake Total 1450 1720 Output Total 45 Balance 1405 1720 Weight 72.121 kg Intake: IV 1450 Intake, IV Titration 760 Amount Sodium Chloride 0.9% 1, 660 000 ml @ 60 mls/hr IV . [id number] MANISHA Rx#:[id number] ceFAZolin 2 gm In Sodium 100 Chloride 0.9% 50 ml @ 100 mls/hr IVPB Q8HR [facility] Rx# :[id number] Oral 960 Output: Estimated Blood Loss 45 Other: Voiding Method Toilet # Voids 1 4 - Labs CBC & Chem 7: 01/02/24 05:09 Labs: Abnormal Lab Results - Last 24 Hours (Table) 01/01/24 01/01/24 01/02/24 Range/Units 16:36 20:22 05:33 POC Glucose (mg/dL) 223 H 166 H 145 H (70-110) mg/dL
[2024-01-02 15:50] VITALS: PULSE 68
--- NOTE | 2024-01-09 18:22 | FL ---
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 Total fluoroscopy time: 12.1 seconds Total submitted images to PACS: 5.48 DAP: 1.1936 mGym2 Gycm2 uGym2 cGycm2 FINDINGS: Fluoroscopic images during internal fixation/arthroplasty demonstrate fixation hardware in appropriat e position. Hardware appears intact. No immediate complication identified. IMPRESSION: 1. No evidence for intraoperative complication. 2. Please see the operative/procedural note for further details. [facility], , 01/09/2024 6:19 PM
== END 2024-01-02 17:14 | disposition home health service (06) ==
LOC: OR 05:42 → 4SSUR 08:57 → OR 01-02 17:14
PROVIDERS: ATTEND Orthopaedic Surgery
DX: M16.11 Unilateral primary osteoarthritis, right hip (principal); J44.9 Chronic obstructive pulmonary disease, unspecified; E03.9 Hypothyroidism, unspecified; I25.10 Atherosclerotic heart disease of native coronary artery without angina pectoris; I10 Essential (primary) hypertension; E78.5 Hyperlipidemia, unspecified; E11.65 Type 2 diabetes mellitus with hyperglycemia; G47.33 Obstructive sleep apnea (adult) (pediatric); Z79.890 Hormone replacement therapy; Z79.899 Other long term (current) drug therapy; Z88.1 Allergy status to other antibiotic agents; Z88.8 Allergy status to other drugs, medicaments and biological substances; Z95.5 Presence of coronary angioplasty implant and graft; Z99.81 Dependence on supplemental oxygen; Z85.528 Personal history of other malignant neoplasm of kidney; Z99.89 Dependence on other enabling machines and devices
CPT/HCPCS: 27130; 94640 ×3; 94664; 97161; 64999; 85025; 83036; 73501; C1776; J2250; J1100; J0690 ×2; J2405; J3010; J2795; J2704; J1170 ×2; 64447